=== PATIENT | female | born 1975 | race Caucasian/White ===

== ENCOUNTER → 2016-10-30 | Outpatient (CLI) | payer BC ==
[2016-10-30 10:43] VITALS: BP 144/84; PULSE 104; RESP 14; TEMP 99.2; BMI 40.1
--- NOTE | 2016-12-03 01:12 | P.PN ---
Progress Note - Text DATE OF CONSULTATION: 10/30/2016. CHIEF COMPLAINT: Bariatric assessment. HISTORY OF PRESENT ILLNESS: Alice Martinez is a 41-year-old female who comes in evaluating for bariatric procedure particular gastric bypass. She reports having history of high liver enzymes including having a previous ultrasound of her liver which have been unremarkable. She does have family and friends who have had bariatric procedures as well. She denies any previous upper endoscopy before. No reports of stomach or esophageal cancer in herself or family. She denies any lupus in her family or ulcerative colitis or Crohn's disease. She denies any food allergies or diarrhea. She does report severe lower back pain including pain along the bilateral hips, knees and ankles. She takes Motrin. She also has troubles with her bladder for which she has had surgical procedure. At her height of 5 feet 5 inches, her ideal body weight is 149 pounds. Her original weight is 250 pounds. She has been able to lose weight down to 241 pounds. She is 92 pounds overweight. Body mass index is reduced from 41.7 down to 40.1. Her goal weight is to get down to 130 to 135 pounds. She reports her weight has gotten worse after working at midnight. She has a history of sleep apnea and snoring. As a result she also developed hypertension. She is looking to have surgery fairly soon. Again, she is evaluating for gastric bypass. PAST MEDICAL HISTORY: 1. Hypertension. 2. Sleep apnea. 3. Depression. 4. Gastroesophageal reflux disease. 5. Hyperlipidemia. 6. Generalized fatigue. 7. Urinary incontinence. 8. Panniculitis. 9. Anxiety. 10. Depression. 11. Panic disorder. PAST SURGICAL HISTORY: 1. . 2. Endometrial procedure. 3. Bladder sling. 4. Tubal ligation. 5. Uterine ablation. MEDICATIONS: 1. Hygroton. 2. Maxalt. 3. Effexor. 4. Neurontin. 5. Restoril. 6. Omeprazole. ALLERGIES: Denies. SOCIAL HISTORY: Reports alcohol use. Former tobacco use. FAMILY HISTORY: Pertinent for morbid obesity. Also has diabetes in her family as well as bipolar disorder, migraines and uterine cancer. REVIEW OF SYSTEMS: CONSTITUTIONAL: Highest weight of 250 pounds for her 5 feet 5 inches frame. Her ideal body weight of 149 pounds. She is 92 pounds overweight. Present weight 241 pounds. Body mass index 40.1. Body mass index reduced from 41.7 down to 40.1. HEENT: Denies any troubles with dysphagia. No reports with troubles with vision, hearing or nosebleeds. ENDOCRINE: No reports of known thyroid disorders or blood sugar glucose intolerance. GASTROINTESTINAL: Reports gastroesophageal reflux disease. Denies any diarrhea. RESPIRATORY: Has obstructive sleep apnea. No recent pneumonia. MUSCULOSKELETAL: Has diffuse osteoarthritis including of the lower back and hips and knees. PSYCH: History of depression, including bipolar disorder. NEURO: No history of stroke or seizure disorder. HEMATOLOGIC: No reports of easy bruising or bleeding. PHYSICAL EXAM: VITAL SIGNS: 98.2, 104, 14, 144/84. GENERAL: Well-developed, pleasant female in no acute distress. HEENT: No sclerae icterus. Extraocular movements grossly intact. Moist buccal mucosa. NECK: Supple without lymphadenopathy. CHEST: Nonlabored respirations. Equal bilateral excursions. CARDIOVASCULAR: Regular rate and rhythm. 2+ bilateral pitting edema. ABDOMEN: Soft, nontender, nondistended. MUSCULOSKELETAL: No clubbing, cyanosis, or edema. PSYCH: Appropriate affect. Alert and oriented to person, place, and time. NEURO: No focal or lateralizing signs. Cranial nerves II through XII grossly within normal limits. LABS: Pending. ASSESSMENT: 1. Morbid obesity due to excess calories. 2. Body mass index reduced from 41.7 down to 40.1. 3. Tachycardia. 4. Obstructive sleep apnea. 5. Osteoarthritis of bilateral hips. 6. Osteoarthritis of lower back. 7. Osteoarthritis of bilateral knees. 8. Family history of morbid obesity. 9. Family history of diabetes type 2. 10. Hypertensive heart disease. 11. History of elevated liver enzymes. 12. Gastroesophageal reflux disease. 13. Dietary surveillance and counseling. PLAN: 1. Recommend upper endoscopy especially since she reports gastroesophageal reflux disease and is looking into a gastrectomy-type procedure. 2. [place] bariatric surgery collaborative outcomes calculator was reviewed in detail, including benefits and risks of all procedures including band, sleeve and Josue-en-Y gastric bypass. Her questions were answered. 3. Will need dietary surveillance and counseling. 4. Psych assessment per insurance guidelines. 5. Medical risk assessment per insurance guidelines. 6. Recommend 12-lead EKG as she has tachycardia and hypertension. 7. Recommend follow up after her upper endoscopy and bariatric metabolic panel.
== END | disposition home or self-care (01) ==
LOC: BARWHC3 09:51
PROVIDERS: ATTEND Surgery Plastic and Reconstructive Surgery
DX: Z01.818 Encounter for other preprocedural examination (principal); E66.01 Morbid (severe) obesity due to excess calories; I11.9 Hypertensive heart disease without heart failure; G47.30 Sleep apnea, unspecified; D50.8 Other iron deficiency anemias
CPT/HCPCS: 99201

== ENCOUNTER 2016-11-28 07:07 | Day surgery (SDC) | payer BC ==
[2016-11-24 15:36] VITALS: BMI 40.1
--- NOTE | 2016-11-28 01:13 | P.GSHP ---
History of Present Illness H&P Date: 11/28/16 CHIEF COMPLAINT: GERD HISTORY OF PRESENT ILLNESS: The patient is a 41-year-old female who presents reports gastroesophageal reflux disease. Upper endoscopy was offered for further evaluation and management. PAST MEDICAL HISTORY: Please see list. PAST SURGICAL HISTORY: Please see list. MEDICATIONS: Please see list. ALLERGIES: Please see list. SOCIAL HISTORY: No illicit drug use FAMILY HISTORY: No reports of Crohn disease or ulcerative colitis. REVIEW OF ORGAN SYSTEMS: CONSTITUTIONAL: No reports of fevers or chills. GI: Denies any blood in stools or constipation. PHYSICAL EXAM: VITAL SIGNS: Stable GENERAL: Well-developed and pleasant in no acute distress. HEENT: No scleral icterus. Extraocular movements grossly intact. Moist buccal mucosa. NECK: Supple without lymphadenopathy. CHEST: Unlabored respirations. Equal bilateral excursions. CARDIOVASCULAR: Regular rate and rhythm. Distal 2+ pulses. ABDOMEN: Soft, nondistended. MUSCULOSKELETAL: No clubbing, cyanosis, or edema. ASSESSMENT: 1. Gastroesophageal reflux disease PLAN: 1. Recommend proceeding with an upper endoscopy Past Medical History Past Medical History: GERD/Reflux, Hyperlipidemia, Hypertension, Sleep Apnea/ CPAP/BIPAP Additional Past Medical History / Comment(s): MIGRAINE HEADACHE History of Any Multi-Drug Resistant Organisms: None Reported Past Surgical History: Section Additional Past Surgical History / Comment(s): 2001, laparscopic endometrial procedure, bladder sling 2012, tubal sterilaztio,, uterine ablation. Past Anesthesia/Blood Transfusion Reactions: No Reported Reaction Additional Past Anesthesia/Blood Transfusion Reaction / Comment(s): no hx of transfusion as of 10/30/16 Past Psychological History: Anxiety, Depression, Panic Disorder Smoking Status: Former smoker Past Alcohol Use History: Rare Additional Past Alcohol Use History / Comment(s): STARTED SMOKING AT AGE 19 QUIT 04/2016 SMOKED LESS THAN 1/2 PPD Past Drug Use History: None Reported - Past Family History Mother Family Medical History: Cancer, Diabetes Mellitus Additional Family Medical History / Comment(s): uterine cancer Medications and Allergies Home Medications Medication Instructions Recorded Confirmed Type Chlorthalidone [Hygroton] 50 mg PO DAILY 10/30/16 11/24/16 History Gabapentin [Neurontin] 600 mg PO HS 10/30/16 11/24/16 History Rizatriptan Odt [[employer]] 10 mg PO Q2H PRN 10/30/16 11/24/16 History Venlafaxine HCl [Effexor] 75 mg PO BID 10/30/16 11/24/16 History Temazepam [Restoril] 15 mg PO HS PRN 11/24/16 11/24/16 History Allergies Allergy/AdvReac Type Severity Reaction Status Date / Time No Known Allergies Allergy Verified 11/24/16 15:12
[~2016-11-28 07:07] MED LIST: LACTATED RINGERS 1,000 ML IV SCH; LIDOCAINE 1% 20 ML VIAL (10MG/ML) FOR IV START INTRADERMA PRN
[2016-11-28 07:29] VITALS: TEMP 98.7
[2016-11-28] MEDS ORDERED: PROPOFOL 10 MG/ML 20 ML VIAL IV ONE (07:54)
[2016-11-28] MEDS ORDERED: LIDOCAINE 1% INJ 10MG/ML (20 ML MDV) ONE (07:54)
[2016-11-28] MEDS ORDERED: GLYCOPYRROLATE 0.2 MG/ML 2 ML VIAL ONE (07:54)
--- NOTE | 2016-11-28 08:04 | P.PCN ---
Date of Procedure: 11/28/16 Description of Procedure: PREOPERATIVE DIAGNOSIS: Gastroesophageal reflux disease. Regurgitation. POSTOPERATIVE DIAGNOSIS: Gastroesophageal reflux disease. Regurgitation. Gastric ulcer along antrum, superficial, without bleeding and acute. OPERATION: Esophagogastroduodenoscopy with biopsies along antrum. SURGEON: Margo Frye MD ANESTHESIA: MAC. INDICATIONS: The patient is a 41-year-old female who presents with a history of reflux disease. Benefits and risks of the procedure were described. Informed consent was obtained. DESCRIPTION: The patient was brought into the endoscopy suite and laid in the left lateral decubitus position. An Olympus gastroscope was passed along the posterior oropharynx down to the distal esophagus where the squamocolumnar junction was encountered at 38 cm from the incisors. The stomach was entered and minimal bile reflux was found. Additional findings are listed below. Biopsies with cold forceps were obtained of the antrum. The first through third portion of the duodenum was examined and unremarkable. Retroflexion of the scope confirmed Hill grade II lower esophageal valve. The squamocolumnar junction demostrated acute LA grade A erosive esophagitis. The stomach was desufflated. The patient tolerated the procedure well. FINDINGS: Squamocolumnar junction 38 cm from the incisors. Hill grade II lower esophageal valve. No large diaphragmatic hiatal hernia LA grade C erosive esophagitis. No active duodenitis. Superficial acute gastric ulcers. RECOMMENDATIONS: Further recommendations pending results of pathology report. Upper endoscopy as needed.
[2016-11-28 08:45] VITALS: BP 119/70; PULSE 94; RESP 18
== END 2016-11-28 08:54 | disposition home or self-care (01) ==
LOC: ORWHC2ENDO 07:07
PROVIDERS: ATTEND Surgery Plastic and Reconstructive Surgery
DX: K29.50 Unspecified chronic gastritis without bleeding (principal); K21.9 Gastro-esophageal reflux disease without esophagitis; I10 Essential (primary) hypertension; E78.5 Hyperlipidemia, unspecified; F32.9 Major depressive disorder, single episode, unspecified; F41.9 Anxiety disorder, unspecified; G47.30 Sleep apnea, unspecified; Z87.891 Personal history of nicotine dependence; Z79.899 Other long term (current) drug therapy
CPT/HCPCS: 88305; 88342; 43239; J2001; J2704

== ENCOUNTER → 2016-12-04 | Outpatient (CLI) | payer BC ==
[2016-12-04 09:19] VITALS: BP 129/78; PULSE 97; RESP 14; TEMP 98.8; BMI 40.1
--- NOTE | 2017-01-05 21:55 | P.PN ---
Progress Note - Text DATE OF SERVICE: 12/04/2016 CHIEF COMPLAINT: Bariatric assessment. HISTORY OF PRESENT ILLNESS: Alice Martinez is a 41-year-old female who initially presented to the [facility] on 10/30/2016. At that time, she had weighed 250 pounds. Her ideal body weight for her 5 foot 5 frame is 149 pounds. Today she comes in weighing 240 pounds. She lost 10 pounds in one month. Percent excess weight loss is now 10%. Body mass index is reduced from 41.7 down to 40.1. She is still 91 pounds overweight. She is following up with Bariatric Dietitian as well. PAST MEDICAL HISTORY: 1. Hypertension. 2. Sleep apnea. 3. Depression. 4. Gastroesophageal reflux disease. 5. Hyperlipidemia. 6. Generalized fatigue. 7. Urinary incontinence. 8. Panniculitis. 9. Anxiety. 10. Depression. 11. Panic disorder. PAST SURGICAL HISTORY: 1. . 2. Endometrial procedure. 3. Bladder sling. 4. Tubal ligation. 5. Uterine ablation. 6. Upper endoscopy. MEDICATIONS: 1. Effexor. 2. Restoril. 3. Maxalt. 4. Omeprazole. 5. Neurontin. 6. Hygroton. ALLERGIES: Denies. SOCIAL HISTORY: Reports alcohol use. Former tobacco use. FAMILY HISTORY: Pertinent for morbid obesity. Also has diabetes in her family as well as bipolar disorder, migraines and uterine cancer. REVIEW OF SYSTEMS: CONSTITUTIONAL: Weight loss of 10 pounds in one month. Initial weight of 250 pounds. [place] body weight of 149 pounds. Her body mass index is reduced from 41.7 down to 40.1. HEENT: Denies any troubles with dysphagia. No reports with troubles with vision, hearing or nosebleeds. ENDOCRINE: No reports of known thyroid disorders or blood sugar glucose intolerance. GASTROINTESTINAL: Reports gastroesophageal reflux disease. Denies any diarrhea. RESPIRATORY: Has obstructive sleep apnea. No recent pneumonia. MUSCULOSKELETAL: Has diffuse osteoarthritis including of the lower back and hips and knees. PSYCH: History of depression, including bipolar disorder. NEURO: No history of stroke or seizure disorder. HEMATOLOGIC: No reports of easy bruising or bleeding. PHYSICAL EXAM: VITAL SIGNS: 98.8, 97, 14, 110/78, 5 foot 5, 240 pounds. Body mass index of 40.1. ABDOMEN: Soft, nontender, nondistended. GENERAL: Well-developed, pleasant female in no acute distress. HEENT: No sclerae icterus. Extraocular movements grossly intact. Moist buccal mucosa. NECK: Supple without lymphadenopathy. CHEST: Nonlabored respirations. Equal bilateral excursions. CARDIOVASCULAR: Regular rate and rhythm. 2+ bilateral pitting edema. MUSCULOSKELETAL: No clubbing, cyanosis, or edema. PSYCH: Appropriate affect. Alert and oriented to person, place, and time. NEURO: No focal or lateralizing signs. Cranial nerves II through XII grossly within normal limits. STUDIES: Upper endoscopy demonstrated gastric ulcer including reflux disease. Hill grade 2 lower esophageal valve identified. Erosive esophagitis also identified. As a result she was placed on omeprazole. Pathology report reviewed, consistent with chronic gastritis. No evidence of H. pylori bacteria identified. LABS: Bariatric metabolic panel reviewed with hemoglobin normal at 15.1. Calcium is moderately elevated at 11. Phosphorus elevated at 4.9. Ferritin elevated at 219. AST elevated at 147. ALT elevated at 237. Triglycerides elevated at 252. Cholesterol elevated at 261. LDL elevated at 161. Vitamin B12 supratherapeutic of over 1000. Parathyroid hormone was actually suppressed at 12.2. Selenium is elevated at 187. ASSESSMENT: 1. Morbid obesity due to excess calories. 2. Body mass index reduced from 41.7 down to 40.1. 3. Tachycardia. 4. Obstructive sleep apnea. 5. Osteoarthritis of bilateral hips. 6. Osteoarthritis of lower back. 7. Osteoarthritis of bilateral knees. 8. Family history of morbid obesity. 9. Family history of diabetes type 2. 10. Hypertensive heart disease. 11. History of elevated liver enzymes. 12. Gastroesophageal reflux disease. 13. Dietary surveillance and counseling. 14. Chronic gastritis. 15. Superficial gastric ulcers. 16. Elevated AST. 17. Elevated ALT. 18. Hypertriglyceridemia. 19. Hypercholesterolemia. 20. Hypocalcemia. 21. Hyperphosphatemia. 22. Erosive esophagitis. 23. Selenium excess. 24. Metabolic syndrome. PLAN: 1. She has multiple abnormalities including elevated triglycerides, including cholesterol level early features consistent with metabolic syndrome. 2. She had gastric ulcer for which she is responding well to omeprazole. 3. Recommend dietitian classes. 4. She has elevated selenium for which additional selenium sources is advised to be avoided. 5. She has elevated liver enzymes whereby a liver ultrasound may be of benefit. She still has her gallbladder for which gallbladder disease cannot be excluded. 6. An 8 page bariatric consent form was reviewed in detail; however, not limited to bleeding, infection, leaks, multiple vitamin deficiencies, and bowel obstruction. Strictures are also described. 7. As an 8 page second generation consent form was reviewed in detail, her questions were addressed. 8. Recommend dietitian classes. 9. As for surgical procedures, she will determine whether she is seeking a sleeve or Josue-en-Y gastric bypass. She has declined adjustable gastric band.
== END | disposition home or self-care (01) ==
LOC: BARWHC3 08:59
PROVIDERS: ATTEND Surgery Plastic and Reconstructive Surgery
DX: Z01.818 Encounter for other preprocedural examination (principal); E66.01 Morbid (severe) obesity due to excess calories; Z68.41 Body mass index [BMI] 40.0-44.9, adult; K29.50 Unspecified chronic gastritis without bleeding; K25.9 Gastric ulcer, unspecified as acute or chronic, without hemorrhage or perforation; R74.8 Abnormal levels of other serum enzymes; R79.89 Other specified abnormal findings of blood chemistry; E78.1 Pure hyperglyceridemia; E78.00 Pure hypercholesterolemia, unspecified; E83.51 Hypocalcemia; E83.39 Other disorders of phosphorus metabolism; K22.10 Ulcer of esophagus without bleeding; Z79.899 Other long term (current) drug therapy; I10 Essential (primary) hypertension
CPT/HCPCS: 99211

== ENCOUNTER → 2016-12-08 | Outpatient (CLI) | payer BC ==
[2016-12-08 12:07] LABS: CH 30.1; CHCM 32.4; HCT 46.5 % (34.0-46.0); HDW 2.28; HGB 15.1 gm/dL (11.4-16.0); MCH 30.3 pg (25.0-35.0); MCHC 32.4 g/dL (31.0-37.0); MCV 93.5 fL (80.0-100.0); Mean Platelet Volume 6.2; RBC 4.98 m/uL (3.80-5.40); RDW 13.7 % (11.5-15.5); WBC 9.9 k/uL (3.8-10.6)
[2016-12-08 12:13] VITALS: BMI 40.4
[2016-12-08 12:16] LABS: Partial Thromboplastin Time 25.8 sec (22.0-30.0); Prothrombin Time 10.2 sec (9.0-12.0)
[2016-12-08 12:31] LABS: ALT 234 U/L (9-52); AST 147 U/L (14-36); Alkaline Phosphatase 64 U/L (38-126); Anion Gap 11 mmol/L; Blood Urea Nitrogen 14 mg/dL (7-17); Carbon Dioxide 29 mmol/L (22-30); Chloride 102 mmol/L (98-107); Cholesterol 261 mg/dL (<200); Glucose 82 mg/dL (74-99); HDL Cholesterol 50 mg/dL (40-60); Iron 109 ug/dL (37-170); Non-African American GFR(MDRD) >60 (>60 ml/min/1.73 sqM); Phosphorous 4.9 mg/dL (2.5-4.5); Potassium 4.4 mmol/L (3.5-5.1); Sodium 142 mmol/L (137-145); Total Bilirubin 0.6 mg/dL (0.2-1.3); Total Protein 7.9 g/dL (6.3-8.2); Triglycerides 252 mg/dL (<150)
[2016-12-08 12:45] LABS: % Iron Saturation 32.9 % (20-50); Prealbumin 30 mg/dL (18-36); Total Iron Binding Capacity 331 ug/dL (265-497)
[2016-12-08 13:38] LABS: Vitamin B12 >1000 pg/mL (239-931)
[2016-12-08 13:58] LABS: Hemoglobin A1C 5.9 % (4.2-6.1)
[2016-12-12 20:52] LABS: Selenium 187 mcg/L (63-160)
== END | disposition home or self-care (01) ==
LOC: BARWHC3 08:49
PROVIDERS: ATTEND Surgery Plastic and Reconstructive Surgery
DX: E66.01 Morbid (severe) obesity due to excess calories (principal); E89.1 Postprocedural hypoinsulinemia; D50.8 Other iron deficiency anemias; K90.9 Intestinal malabsorption, unspecified; E55.9 Vitamin D deficiency, unspecified; N19 Unspecified kidney failure; K76.9 Liver disease, unspecified; K50.90 Crohn's disease, unspecified, without complications
CPT/HCPCS: 80053; 80061; 82306; 82525; 82607; 82728; 82746; 83036; 83540; 83550; 83735; 83970; 84100; 84134; 84255; 84425; 84443; 84590; 84630; 85027; 85610; 85730; 97804

== ENCOUNTER → 2016-12-16 | Outpatient (CLI) | payer BC ==
[2016-12-16 11:27] LABS: EKG EKG PERFORMED
[2016-12-16 11:47] LABS: ALT 232 U/L (9-52); AST 153 U/L (14-36); Alkaline Phosphatase 61 U/L (38-126); Anion Gap 9 mmol/L; Blood Urea Nitrogen 12 mg/dL (7-17); Calcium 10.2 mg/dL (8.4-10.2); Carbon Dioxide 24 mmol/L (22-30); Chloride 108 mmol/L (98-107); Glucose 97 mg/dL (74-99); Non-African American GFR(MDRD) >60 (>60 ml/min/1.73 sqM); Potassium 4.5 mmol/L (3.5-5.1); Sodium 141 mmol/L (137-145); Total Bilirubin 0.7 mg/dL (0.2-1.3); Total Protein 7.5 g/dL (6.3-8.2)
== END | disposition home or self-care (01) ==
LOC: LABPAT 11:08
PROVIDERS: ATTEND Surgery Plastic and Reconstructive Surgery
DX: Z01.812 Encounter for preprocedural laboratory examination (principal)
CPT/HCPCS: 80053; 93005

== ENCOUNTER → 2016-12-16 | Outpatient (CLI) | payer BC ==
--- NOTE | 2016-12-16 11:13 | US ---
EXAMINATION TYPE: US gallbladder DATE OF EXAM: 12/16/2016 11:04 AM COMPARISON: NONE CLINICAL HISTORY: K76.9 Liver disease, unspecified. EXAM MEASUREMENTS: Liver Length: 15.0 cm Gallbladder Wall: 0.2 cm CBD: 0.4 cm Right Kidney: 12.4 x 3.9 x 4.7 cm Pancreas: visualized portions wnl Liver: difficult to penetrate, echogenic as compared to kidney Gallbladder: No stones seen Evidence for sonographic Mojica's sign: No CBD: wnl Right Kidney: No hydronephrosis or masses seen IMPRESSION: 1. Fatty hepatic infiltration.
== END | disposition home or self-care (01) ==
LOC: RADUSWWP 10:50
PROVIDERS: ATTEND Surgery Plastic and Reconstructive Surgery
DX: K76.0 Fatty (change of) liver, not elsewhere classified (principal)
CPT/HCPCS: 76705

== ENCOUNTER 2016-12-19 06:26 | Inpatient (IN) | payer BC ==
[2016-12-17 10:54] VITALS: BMI 39.9
--- NOTE | 2016-12-19 00:26 | P.GSHP ---
History of Present Illness H&P Date: 12/19/16 DATE OF SERVICE: 12/19/2016. CHIEF COMPLAINT: Bariatric assessment. HISTORY OF PRESENT ILLNESS: Alice Martinez is a 41-year-old female who comes in evaluating for gastric bypass. She reports having history of high liver enzymes including having a previous ultrasound of her liver which have been unremarkable. She does have family and friends who have had bariatric procedures as well. No reports of stomach or esophageal cancer in herself or family. She denies any lupus in her family or ulcerative colitis or Crohn's disease. She denies any food allergies or diarrhea. She does report severe lower back pain including pain along the bilateral hips, knees and ankles. She takes Motrin. She also has troubles with her bladder for which she has had surgical procedure. At her height of 5 feet 5 inches, her ideal body weight is 149 pounds. Her original weight is 250 pounds. She has been able to lose weight down to 241 pounds. She is 92 pounds overweight. Body mass index is reduced from 41.7 down to 40.1. Her goal weight is to get down to 130 to 135 pounds. She reports her weight has gotten worse after working at midnight. She has a history of sleep apnea and snoring. As a result she also developed hypertension. Again, she is evaluating for gastric bypass. PAST MEDICAL HISTORY: 1. Hypertension. 2. Sleep apnea. 3. Depression. 4. Gastroesophageal reflux disease. 5. Hyperlipidemia. 6. Generalized fatigue. 7. Urinary incontinence. 8. Panniculitis. 9. Anxiety. 10. Depression. 11. Panic disorder. PAST SURGICAL HISTORY: 1. . 2. Endometrial procedure. 3. Bladder sling. 4. Tubal ligation. 5. Uterine ablation. MEDICATIONS: 1. Hygroton. 2. Maxalt. 3. Effexor. 4. Neurontin. 5. Restoril. 6. Omeprazole. ALLERGIES: Denies. SOCIAL HISTORY: Reports alcohol use. Former tobacco use. FAMILY HISTORY: Pertinent for morbid obesity. Also has diabetes in her family as well as bipolar disorder, migraines and uterine cancer. REVIEW OF SYSTEMS: CONSTITUTIONAL: Highest weight of 250 pounds for her 5 feet 5 inches frame. Her ideal body weight of 149 pounds. She is 92 pounds overweight. Present weight 241 pounds. Body mass index 40.1. Body mass index reduced from 41.7 down to 40.1. HEENT: Denies any troubles with dysphagia. No reports with troubles with vision, hearing or nosebleeds. ENDOCRINE: No reports of known thyroid disorders or blood sugar glucose intolerance. GASTROINTESTINAL: Reports gastroesophageal reflux disease. Denies any diarrhea. RESPIRATORY: Has obstructive sleep apnea. No recent pneumonia. MUSCULOSKELETAL: Has diffuse osteoarthritis including of the lower back and hips and knees. PSYCH: History of depression, including bipolar disorder. NEURO: No history of stroke or seizure disorder. HEMATOLOGIC: No reports of easy bruising or bleeding. PHYSICAL EXAM: VITAL SIGNS: 98.2, 104, 14, 144/84. GENERAL: Well-developed, pleasant female in no acute distress. HEENT: No sclerae icterus. Extraocular movements grossly intact. Moist buccal mucosa. NECK: Supple without lymphadenopathy. CHEST: Nonlabored respirations. Equal bilateral excursions. CARDIOVASCULAR: Regular rate and rhythm. 2+ bilateral pitting edema. ABDOMEN: Soft, nontender, nondistended. MUSCULOSKELETAL: No clubbing, cyanosis, or edema. PSYCH: Appropriate affect. Alert and oriented to person, place, and time. NEURO: No focal or lateralizing signs. Cranial nerves II through XII grossly within normal limits. ASSESSMENT: 1. Morbid obesity due to excess calories. 2. Body mass index 40.1. 3. Chronic gastritis. 4. Superficial gastric ulcers. 5. Elevated AST. 6. Elevated ALT. 7. Hypertriglyceridemia. 8. Hypercholesterolemia. 9. Hypocalcemia. 10. Hyperphosphatemia. 11. Erosive esophagitis. 12. Hypertension. PLAN: 1. She has multiple elevated triglycerides, including cholesterol level early features consistent with metabolic syndrome. 2. She had gastric ulcer for which she is responding well to omeprazole. 3. Recommend dietitian classes. 4. She has elevated selenium for which additional selenium sources is advised to be avoided. 5. She has elevated liver enzymes whereby a liver ultrasound may be of benefit. She still has her gallbladder for which gallbladder disease cannot be excluded. 6. An 8 page bariatric consent form was reviewed in detail; however, not limited to bleeding, infection, leaks, multiple vitamin deficiencies, and bowel obstruction. Strictures are also described. 7. DVT prophylaxis. 8. Antibiotic prophylaxis. 9. Inpatient hospitalization advised over 2 nights. Past Medical History Past Medical History: GERD/Reflux, Hyperlipidemia, Hypertension, Sleep Apnea/ CPAP/BIPAP Additional Past Medical History / Comment(s): MIGRAINE HEADACHE, Peptic ulcer dx November 2016, supposed to use CPAP History of Any Multi-Drug Resistant Organisms: None Reported Past Surgical History: Section, Tubal Ligation, Uterine Ablation Additional Past Surgical History / Comment(s): laparoscopic endometrial procedure, bladder sling 2012, EGD Past Anesthesia/Blood Transfusion Reactions: No Reported Reaction Additional Past Anesthesia/Blood Transfusion Reaction / Comment(s): no hx of transfusion as of 10/30/16 Past Psychological History: Anxiety, Depression, Panic Disorder Smoking Status: Former smoker Past Alcohol Use History: Rare Additional Past Alcohol Use History / Comment(s): STARTED SMOKING AT AGE 19 QUIT 04/2016 SMOKED LESS THAN 1/2 PPD Past Drug Use History: None Reported - Past Family History Mother Family Medical History: Cancer, Diabetes Mellitus Additional Family Medical History / Comment(s): uterine cancer Medications and Allergies Home Medications Medication Instructions Recorded Confirmed Type Chlorthalidone [Hygroton] 50 mg PO DAILY 10/30/16 12/17/16 History Gabapentin [Neurontin] 600 mg PO HS 10/30/16 12/17/16 History Rizatriptan Odt [[employer]] 10 mg PO Q2H PRN 10/30/16 12/17/16 History Venlafaxine HCl [Effexor] 75 mg PO BID 10/30/16 12/17/16 History Temazepam [Restoril] 15 - 30 mg PO HS PRN 11/24/16 12/17/16 History Allergies Allergy/AdvReac Type Severity Reaction Status Date / Time No Known Allergies Allergy Verified 12/17/16 09:57
[~2016-12-19 06:26] MED LIST changes: +ACETAMINOPHEN IV (For NPO) 1,000 MG in EMPTY BAG 1 BAG IVPB ONE; +CHLORHEXIDINE GLUCONATE 15 ML CUP MUCOUS MEM ONE; +DEXAMETHASONE SOD PHOSPHATE 10 MG/ML 1 ML VIAL IV ONE; +ENOXAPARIN 40 MG/0.4 ML SYRINGE SQ STA; -LACTATED RINGERS 1,000 ML IV SCH; +MIDAZOLAM 2 MG/2 ML VIAL IV PRN; +ONDANSETRON 4 MG/2 ML VIAL IVP ONE; +PANTOPRAZOLE 40 MG/10 ML VIAL IV STA; +SCOPOLAMINE 1.5MG/72HR PATCH TRANSDERM ONE; +ceFAZolin 2 GM in SODIUM CHLORIDE 0.9% 100 ML IVPB ONE
[2016-12-19] MEDS: LACTATED RINGERS 1,000 ML IV SCH (06:57)
[2016-12-19] MEDS ORDERED: MIDAZOLAM 2 MG/2 ML VIAL ONE (07:30)
[2016-12-19] MEDS ORDERED: NEOSTIGMINE 1 MG/ML 10 ML VIAL ONE (07:30)
[2016-12-19] MEDS ORDERED: ROCURONIUM BROMIDE 10 MG/ML 10 ML VIAL IV ONE (07:30)
[2016-12-19] MEDS ORDERED: PHENYLEPHRINE-0.9% NACL SYG 1 MG/10 ML SYRINGE ONE (07:30)
[2016-12-19] MEDS ORDERED: HYDROmorphone (PF) 1 MG/ML ONE (07:30)
[2016-12-19] MEDS ORDERED: SUCCINYLCHOLINE CHLORIDE 100 MG/5 ML SYR IV ONE (07:30)
[2016-12-19] MEDS ORDERED: LIDOCAINE 1% INJ 10MG/ML (20 ML MDV) ONE (07:30)
[2016-12-19] MEDS ORDERED: GLYCOPYRROLATE 0.2 MG/ML 2 ML VIAL ONE (07:30)
[2016-12-19] MEDS ORDERED: fentaNYL (PF) 50 MCG/ML 2 ML AMP ONE (07:30)
[2016-12-19] MEDS ORDERED: ePHEDrine 50 MG/ML 1 ML AMP ONE (07:30)
[2016-12-19] MEDS ORDERED: PROPOFOL 10 MG/ML 20 ML VIAL IV ONE (07:30)
[2016-12-19] MEDS ORDERED: SODIUM CHLORIDE 0.9% 50 ML with ceFAZolin 2,000 MG IV ONE ×2 (07:30)
[2016-12-19] MEDS ORDERED: BUPIVACAIN-EPI 0.25%-1:200,000 30 ML VIAL SQ ONE ×2 (07:59)
[2016-12-19] MEDS ORDERED: LACTATED RINGERS 1,000 ML IV ONE ×2 (10:26)
[2016-12-19] MEDS ORDERED: NALOXONE 0.4 MG/ML 1 ML VIAL IV PRN (10:39)
[2016-12-19] MEDS ORDERED: ONDANSETRON 4 MG/2 ML VIAL IVP PRN (10:39)
[2016-12-19] MEDS ORDERED: diphenhydrAMINE 50 MG/ML 1 ML VIAL IVP PRN (10:39)
--- NOTE | 2016-12-19 10:39 | P.PCN ---
Date of Procedure: 12/19/16 Preoperative Diagnosis: Morbid obesity, BMI 39.9, elevated liver enzymes, hypertension, sleep apnea, metabolic syndrome Postoperative Diagnosis: Same, severe fatty liver disease with early cirrhosis, hepatomegaly Procedure(s) Performed: Laparoscopic Josue-en-Y gastric bypass 100 cm, antecolic, antigastric, intraoperative EGD today, attempted percutaneous liver biopsy, reduction of incarcerated incisional hernia Pfannenstiel 3 cm Anesthesia: GETA, local Surgeon: Margo Frye Estimated Blood Loss (ml): 20 Pathology: none sent Condition: stable Disposition: floor Operative Findings: Severe fatty liver disease with hepatocellular findings consistent with early cirrhosis, attempted liver biopsy performed with percutaneous [place] needle, 100 cm Josue limb, 25 mm Orvil, negative leak test, no reinforcement sutures needed, 24 cm thoracic length, 3 - 60 purple, 1 - 60 angle oliva, 2 - 45 mm oliva, 12 mm port at RLQ, 5 - mm at LLQ, incarcerated hernia previous pfannenstiel of 3 cm reduced
[2016-12-19] MEDS: HYDROmorphone 1 MG/ML 1 ML SYRINGE IVP PRN ×3 (11:30→13:13)
[2016-12-19] MEDS ORDERED: ACETAMINOPHEN IV (For NPO) 1,000 MG in EMPTY BAG 1 BAG IVPB ONE (13:00)
[2016-12-19] MEDS: 0.9% NACL WITH KCL 20 MEQ/L 1,000 ML IV SCH ×2 (13:06→23:22)
[2016-12-19] MEDS: HYOSCYAMINE ORAL DROPS 1.875 MG/15 ML BOTTLE PO SCH ×3 (13:07→23:21)
[2016-12-19] MEDS: SIMETHICONE 40 MG/0.6 ML DROPS 2,000 MG/30 ML BOTTLE PO SCH ×3 (13:08→23:21)
[2016-12-19] MEDS: ALBUTEROL NEBULIZED 2.5 MG/3 ML INHALATION SCH ×2 (15:51→19:39)
--- NOTE | 2016-12-19 16:17 | P.PN ---
Subjective Principal diagnosis: Morbid obesity The patient is a 41-year-old female status post laparoscopic Josue-en-Y gastric bypass. Findings including liver disease and liver cirrhosis were also reviewed with her. Also she had an incarcerated incisional hernia from her previous which is present for over 15+ years. Her pain is fair. Her nausea is improved. Objective - Vital Signs Vital signs: Vital Signs Temp 98.5 F 12/19/16 15:06 Pulse 71 12/19/16 15:06 Resp 16 12/19/16 15:21 BP 132/89 12/19/16 15:06 Pulse Ox 99 12/19/16 15:06 Intake & Output 12/18/16 12/19/16 12/19/16 18:59 06:59 18:59 Intake Total 300 1450 Output Total 125 Balance 300 1325 Weight 108.862 kg Intake: IV 300 1450 Output: Urine 105 Estimated Blood Loss 20 Other: Voiding Method Toilet # Voids 300 - Exam GENERAL: Well developed and in no acute distress. Pleasant. HEENT: No sclera icterus. Extraocular movements grossly intact. Moist buccal mucosa. Head is atraumatic, normocephalic. Hears conversational speech. No nasal drainage. NECK: Supple without lymphadenopathy. No JV distention. CHEST: Non-labored respirations and equal bilateral excursions. CARDIOVASCULAR: Regular rate and rhythm. Palpable 2+ radial pulses. ABDOMEN: Soft. Mild distention. Laparoscopic sites clean dry and intact. No signs of infection. MUSCULOSKELETAL: No clubbing, cyanosis or edema. NEUROLOGIC: No focal or lateralizing signs. PSYCH: Appropriate affect. Alert and oriented to person, place and time. Assessment and Plan (1) Morbid obesity with BMI of 40.0-44.9, adult Status: Acute (2) S/P bariatric surgery Status: Acute (3) Liver cirrhosis secondary to WHITAKER Status: Acute (4) Hepatomegaly Status: Acute (5) Hypertension Status: Acute (6) Sleep apnea Status: Acute Plan: 1. She is doing extremely well and is tolerating liquid diet. 2. Recommend low carbohydrate diet to address severity of fatty liver disease. 3. She has anticipated follow-up within 48-72 hours.
[2016-12-19] MEDS ORDERED: MAGNESIUM SULFATE-D5W PMX 1 GM in DEXTROSE/WATER 1 100ML.BAG IVPB ONE ×2 (17:00→17:30)
[2016-12-19] MEDS: HYDROcodone/APAP 15 ML SOLUTION PO PRN ×2 (17:06→23:20)
[2016-12-20] MEDS: HYDROcodone/APAP 15 ML SOLUTION PO PRN ×3 (04:35→16:07)
[2016-12-20] MEDS: SIMETHICONE 40 MG/0.6 ML DROPS 2,000 MG/30 ML BOTTLE PO SCH ×4 (04:36→23:03)
[2016-12-20] MEDS: HYOSCYAMINE ORAL DROPS 1.875 MG/15 ML BOTTLE PO SCH ×4 (04:36→23:03)
[2016-12-20] MEDS: 0.9% NACL WITH KCL 20 MEQ/L 1,000 ML IV SCH ×3 (04:39→21:13)
[2016-12-20] MEDS: LACTATED RINGERS 1,000 ML IV SCH (05:38)
[2016-12-20 07:20] LABS: Basophils % (A) 0 %; CH 30.4; CHCM 33.1; Eosinophils % (A) 0 %; HCT 37.5 % (34.0-46.0); HDW 2.33; HGB 12.3 gm/dL (11.4-16.0); Luc # (Auto) 0.23; Luc % (Auto) 2; Lymphocytes # (A) 1.5 k/uL (1.0-4.8); Lymphocytes % (A) 12 %; MCH 30.2 pg (25.0-35.0); MCHC 32.7 g/dL (31.0-37.0); MCV 92.3 fL (80.0-100.0); Mean Platelet Volume 6.5; Monocytes # (A) 0.6 k/uL (0-1.0); Monocytes % (A) 5 %; Neutrophils # (A) 9.8 k/uL (1.3-7.7); Neutrophils % (A) 81 %; RBC 4.06 m/uL (3.80-5.40); RDW 13.6 % (11.5-15.5); WBC 12.1 k/uL (3.8-10.6); WBC (Perox) 12.77
[2016-12-20 07:41] LABS: Anion Gap 7 mmol/L; Blood Urea Nitrogen 10 mg/dL (7-17); Calcium 8.7 mg/dL (8.4-10.2); Carbon Dioxide 23 mmol/L (22-30); Chloride 108 mmol/L (98-107); Magnesium 2.2 mg/dL (1.6-2.3); Non-African American GFR(MDRD) >60 (>60 ml/min/1.73 sqM); Phosphorous 2.8 mg/dL (2.5-4.5); Potassium 4.4 mmol/L (3.5-5.1); Sodium 138 mmol/L (137-145)
[2016-12-20] MEDS: ALBUTEROL NEBULIZED 2.5 MG/3 ML INHALATION SCH ×4 (08:07→20:34)
[2016-12-20] MEDS: PANTOPRAZOLE 40 MG/10 ML VIAL IV SCH (09:04)
[2016-12-20] MEDS: ENOXAPARIN 40 MG/0.4 ML SYRINGE SQ SCH ×2 (09:04→21:56)
[2016-12-20] MEDS ORDERED: ceFAZolin 2 GM in SODIUM CHLORIDE 0.9% 100 ML IVPB STA (09:28)
[2016-12-20] MEDS ORDERED: METOCLOPRAMIDE 5 MG/ML 2 ML VIAL IVP STA (10:59)
[2016-12-20] MEDS ORDERED: BISACODYL 10 MG SUPP RECTAL STA (10:59)
--- NOTE | 2016-12-20 11:05 | P.PN ---
Subjective Principal diagnosis: Morbid obesity The patient is a 41-year-old female status post laparoscopic Josue-en-Y gastric bypass. This morning she reports abdominal distention and gas pains. She is tolerating liquid diet. No reports of fevers or chills. She gets up a bowel movement. Objective - Vital Signs Vital signs: Vital Signs Temp 98.3 F 12/20/16 07:00 Pulse 94 12/20/16 08:14 Resp 15 12/20/16 07:00 BP 109/73 12/20/16 07:00 Pulse Ox 93 L 12/20/16 07:00 Intake & Output 12/19/16 12/20/16 12/20/16 18:59 06:59 18:59 Intake Total 1450 590 Output Total 125 1100 Balance 1325 590 -1100 Weight 108.862 kg Intake: IV 1450 Oral 590 Output: Urine 105 1100 Estimated Blood Loss 20 Other: Voiding Method Toilet Toilet # Voids 300 2 - Exam GENERAL: Well developed and in no acute distress. Pleasant. HEENT: No sclera icterus. Extraocular movements grossly intact. Moist buccal mucosa. Head is atraumatic, normocephalic. Hears conversational speech. No nasal drainage. NECK: Supple without lymphadenopathy. No JV distention. CHEST: Non-labored respirations and equal bilateral excursions. CARDIOVASCULAR: Regular rate and rhythm. Palpable 2+ radial pulses. ABDOMEN: Soft. Mild to moderate distention. Laparoscopic sites clean dry and intact without infection. Left upper quadrant dressing with minimal shadowing. MUSCULOSKELETAL: No clubbing, cyanosis or edema. NEUROLOGIC: No focal or lateralizing signs. PSYCH: Appropriate affect. Alert and oriented to person, place and time. - Labs CBC & Chem 7: 12/20/16 06:14 12/20/16 06:14 Labs: Abnormal Lab Results - Last 24 Hours (Table) 12/20/16 12/20/16 Range/Units 06:14 06:14 WBC 12.1 H (3.8-10.6) k/uL Neutrophils # 9.8 H (1.3-7.7) k/uL Chloride 108 H (98-107) mmol/L Assessment and Plan (1) Morbid obesity with BMI of 40.0-44.9, adult Status: Acute (2) S/P bariatric surgery Status: Acute (3) Liver cirrhosis secondary to WHITAKER Status: Acute (4) Hepatomegaly Status: Acute (5) Hypertension Status: Acute (6) Sleep apnea Status: Acute Plan: 1. She is was started on Dulcolax suppository including Reglan to help with gastric motility. 2. Discharge instructions reviewed including immediate follow-up within 48 to 72 hours. 3. Protein shakes to start on postoperative day #4. 4. Continue hospitalization pending resolution of gas pains.
[2016-12-20] MEDS: HYDROmorphone 1 MG/ML 1 ML SYRINGE IVP PRN ×3 (14:32→21:11)
--- NOTE | 2016-12-20 15:42 | P.PN ---
Progress Note - Text Patient re-eval it this evening secondary to abdominal distention. She describes minimal relief with suppository and Reglan. We'll obtain abdominal films. Continue with hospitalization.
--- NOTE | 2016-12-20 16:37 | P.OP ---
Date of Procedure: 12/19/16 Description of Procedure: DESCRIPTION OF PROCEDURE(S): SURGEON: PARVEEN TRIMBLE MD SANITOR: ELIZABETH HERNANDEZ. PREOPERATIVE DIAGNOSES: 1. Morbid obesity due to excess calories. 2. Body mass index reduced from 41.7 down to 40.1. 3. Tachycardia. 4. Obstructive sleep apnea. 5. Osteoarthritis of bilateral hips. 6. Osteoarthritis of lower back. 7. Osteoarthritis of bilateral knees. 8. Family history of morbid obesity. 9. Family history of diabetes type 2. 10. Hypertensive heart disease. 11. History of elevated liver enzymes. 12. Gastroesophageal reflux disease. 13. Dietary surveillance and counseling. 14. Chronic gastritis. 15. Superficial gastric ulcers. 16. Elevated AST. 17. Elevated ALT. 18. Hypertriglyceridemia. 19. Hypercholesterolemia. 20. Hypocalcemia. 21. Hyperphosphatemia. 22. Erosive esophagitis. POSTOPERATIVE DIAGNOSES: 1. Morbid obesity due to excess calories. 2. Body mass index reduced from 41.7 down to 40.1. 3. Tachycardia. 4. Obstructive sleep apnea. 5. Osteoarthritis of bilateral hips. 6. Osteoarthritis of lower back. 7. Osteoarthritis of bilateral knees. 8. Family history of morbid obesity. 9. Family history of diabetes type 2. 10. Hypertensive heart disease. 11. History of elevated liver enzymes. 12. Gastroesophageal reflux disease. 13. Dietary surveillance and counseling. 14. Chronic gastritis. 15. Superficial gastric ulcers. 16. Elevated AST. 17. Elevated ALT. 18. Hypertriglyceridemia. 19. Hypercholesterolemia. 20. Hypocalcemia. 21. Hyperphosphatemia. 22. Erosive esophagitis. 23. Intra-abdominal adhesions right lower quadrant transverse colon to small bowel. 24. Incarcerated incisional hernia 3 cm from previous Pfannenstiel incision C- section involving omentum. 25. Liver cirrhosis secondary to nonalcoholic fatty liver disease. 26. Severe hepatomegaly. OPERATION: 1. Laparoscopic reduction of incarcerated Pfannenstiel incision, 3 cm. 2. Laparoscopic Josue-en-Y gastric bypass, 100 cm antecolic and gastric Josue limb , with 25 mm EEA. 3. Laparoscopic lysis of adhesions right lower quadrant transverse colon to small bowel. 4. Intraoperative esophagogastrojejunoscopy. 5. Application of OptiFoam dressing. 6. Attempted percutaneous liver biopsy. ANESTHESIA: 90 mL quarter percent Marcaine with epinephrine. ESTIMATED BLOOD LOSS: 20 mL SPECIMENS REMOVED: None. COMPLICATIONS: None. INDICATIONS: The patient is a very pleasant, 41-year-old female who presents with morbid obesity as her body mass index was 41.7. Highest lifetime weight 250 pounds. [place] body weight of 149 pounds. Height of 5 feet 5 inches. Her body mass index has been reduced from 41.7 down to 39.9. She has lost 11 pounds in over 2 months. Today she comes in weighing 239 pounds. All surgical options for morbid obesity had been described using the [place] bariatric surgery collaborative comorbidity resolution including complication risk score. The patient had elected for a gastric bypass with possible sleeve gastrectomy. A second-generation bariatric consent form was described in detail including the possibility of protein malnutrition, leaks, gastrojejunal stricture, venous thrombosis for which she demonstrated understanding. Benefits and risks of the procedure were described at length. Informed consent was obtained. DESCRIPTION: The patient was brought into the operating room theater. She was placed on a split leg table. Preoperatively she had received Lovenox subcutaneously for DVT prophylaxis. Additionally she had undergone Peridex oral solution as an oral decontaminant. After general induction, the abdomen was prepped and draped in standard sterile fashion. A Osei catheter was placed. Ioban draping was placed along the abdomen. A 0 10 mm laparoscopic trocar entry was performed along the epigastrium approximately 15 cm distal to the xiphoid process. Her xiphoid to her umbilicus was 24 cm for her height of 5 foot 5 inches. Diagnostic laparoscopy demonstrated no injury to bowel, viscera, or mesentery. Along the lower pelvis was an incarcerated incisional hernia of 3-cm from a previous Pfannenstiel incision involving omentum to the lower abdominal wall. The liver surface was remarkable for yellow liver serosa from severe fatty liver disease with severe hepatomegaly. No injury had occurred to the small bowel or viscera. Along the hiatus no evidence of prominent hiatal hernia was encountered. At the left upper quadrant 2- 12 mm trocars were placed 1 along the left midclavicular line and another along the anterior axillary line. In a mirror-xiong fashion, 2 - 12 mm trocars were also placed along the right upper abdomen in a mirror-xiong fashion. An additional 12 mm port was placed along the right lower quadrant. A separate 5 Mediport was placed along the left lower quadrant The patient was repositioned to supine position with the bed levelled. Attention was brought to the lower pelvis whereby the incarcerated incisional hernia defect was reduced into the abdominal cavity. Additional adhesions between the transverse colon and small bowel of the right lower quadrant was lysed using endoscopic scissors as to decrease risk for internal hernia and small bowel obstruction. The transverse mesocolon, including the omentum, was reflected over the stomach. The ligament of Treitz was identified and measured 60 cm antegrade. The jejunum was divided at the 60 cm point after using metered graspers for measurement. The biliopancreatic limb was held in place by the residential living assistant. The Josue limb was then measured 100 cm distally to avoid tension along the proposed gastrojejunal anastomosis. The Josue limb was marked using a Pearson drain and 2-0 silk on an Endo Stitch along its proximal staple edge. At 100 cm along the anti-mesenteric border of the Josue limb, a jejunojejunostomy was proposed whereby enterotomies were created along the biliopancreatic limb including the Josue limb using a suction Bovie cautery. The enterotomies were widened using a [place]. A bidirectional fire was performed whereby from the right side a 45 mm oliva load was fired. From the left side a separate 45 mm firing had occurred, creating a 90 mm jejunojejunostomy. The defect was then closed using a 60 mm oliva load. The jejunojejunostomy was found to be hemostatic. Attention was now brought to the creation of the gastrojejunostomy. The patient was then placed in reverse Trendelenburg. Placement of a medium size Shae liver retractor was used to elevate the left lobe of the liver for greater visualization of the upper abdomen, particularly the superior pole of the stomach. The Shae liver retractor was held in place using an iron internal combustion engine subassembler. Along the lesser curvature of the stomach between the second and third veins, dissection was made along the retrogastric space to allow first firing of the Covidien Tri-Staple purple load. Once adequately mobilized, an initial firing using a 60 mm purple load was performed perpendicular to the lesser curvature of the stomach. To completely divide the pouch from the remnant stomach, three 60 mm purple loads were fired towards the angle of His. Additional staplers were used to completely divide the stomach from the gastric pouch as she had redundant posterior stomach. A total of 6 staplers were used to create the gastric pouch : 3 - 60 mm purple, 1 - 60 mm oliva angled, 2 - 45 mm oliva Covidien tri-stapler loads used to create the gastric pouch.Hemostasis was checked. The patient was then prepared for placement of a Orvil. The patient was Mallampati 3. A 25-mm Orvil was selected for placement by the nurse master machinist. The Orvil tubing was placed anterior to the staple line of the gastric pouch and brought out through the left inferior lateral port along the residential living assistant port. The Orvil was then carefully and successfully navigated with the help of the nurse master machinist into the gastric pouch. The sutures were identified and divided. The tubing was from the 25 mm anvil. Using aseptic technique all instruments including port sites were exchanged. As the Orvil had been placed, the blind jejunal limb was brought proximally into the upper abdomen. The transverse mesocolon was cleaved using a Harmonic scalpel. The patient was repositioned in reverse Trendelenburg. No torsion was found upon the Josue limb. No tension was identified as the limb was brought along the upper abdomen. The blind jejunal limb was opened using a cordless Harmonic scalpel. The 25-mm EEA stapler was brought through the left anterior lateral port site from the left side. Please note that the trocars from the Orvil tubing, including the port, were removed to minimize contamination from the oral janell. The EEA stapler was brought through the open jejunal limb and its needle was deployed at the antimesenteric border where the anvil were mated for approximately 1 minute upon firing. The stapler was removed after irrigating the shaft of the instrument with warm normal saline. Donuts were found to be intact and thick on both sides. The open jejunal limb defect was closed using a 60 mm oliva load after releasing any tension from the blind jejunal limb. Hemostasis was checked with Sonicision along the blind jejunal limb mesentery. Care was taken to avoid any long blind limb and to avoid candycane syndrome. No reinforcement sutures were needed along the gastrojejunal anastomosis. Closure of the mesenteric defects was performed, initially of the Massey defect using 2-0 silk on an Endo Stitch and a Lapra-Ty and the jejunojejunostomy mesenteric defect. I then went to the head of the bed to perform the esophagogastrojejunoscopy and a leak test. An Olympus gastroscope was passed along the posterior oropharynx which was unremarkable for any injury to the vocal cords. The scope was passed down to the proximal portion of the pouch, whereby no active bleeding was encountered. Excellent visualization of the gastrojejunostomy anastomosis, including the Josue limb was encountered with endoscopic image obtained. The anastomosis was found to be patent. The gastrointestinal tract was desufflated. No evidence of intraoperative leak was encountered as the gastric pouch and anastomosis were submerged under normal saline solution. I then went back to the bedside of the patient, whereby with coordinated effort of the residential living assistant, irrigation was aspirated from the upper abdominal cavity. Tisseel was placed circumferentially over the anastomosis of the gastrojejunostomy. The fascial defect of the left upper quadrant corresponding to the EEA stapler entry was oversewn using 2-0 Vicryl and Endo Stitch. Attention was brought to the right lobe of the liver whereby a 16-Tajik percutaneous liver biopsy at least 3 tries were performed however the spring- loaded biopsy device was defective. Hemostasis was checked. All instruments and pneumoperitoneum were evacuated from the abdominal cavity. The port correlating with the EEA stapler device was copiously irrigated with 3 L of warm normal saline solution and 50 mL of hydrogen peroxide. The rest of incisions were reapproximated using 3-0 Vicryl for deep subcutaneous tissue and dermis followed by 4-0 Monocryl in a running subcuticular fashion. The incision of the left upper quadrant involving the EEA stapler was loosely approximated using 4-0 Monocryl. For local anesthetic, 90 mL of local anesthetic was used along the skin for postop analgesia. Dermabond was applied to the skin. OptiFoam dressing was placed along the EEA stapler site. At the end of the procedure, needle, sponge and instrument count had been verified correct by the surgical services asst. She had tolerated the procedure well and was taken to the postanesthesia unit in stable condition. Total skin to skin time was 142 minutes. FINDINGS: 1. Negative intraoperative esophagogastrojejunoscopy leak test. 2. Severe fatty liver disease with hepatocellular findings consistent with early cirrhosis. 3. All defects including jejunojejunostomy Massey defects were closed. 4. Total of 6 staple loads including 3 - 60 mm purple, 1 - 60 mm oliva angled, 2 - 45 mm oliva Covidien tri-stapler loads used to create the gastric pouch. 5. Gastrojejunostomy created using 25 mm Orvil. 6. Jejunojejunostomy created with 90 mm bautista-lumen 7. Xiphoid to umbilical height of 24 cm. 8. Attempted liver biopsy performed with percutaneous 16-Tajik needle 9. 100 cm Josue limb. 10. No reinforcement sutures needed along gastrojejunal anastomosis. 11. Incarcerated fat-containing hernia from previous pfannenstiel of 3 cm reduced.
--- NOTE | 2016-12-20 17:24 | XR ---
EXAMINATION TYPE: XR abdomen 2V DATE OF EXAM: 12/20/2016 4:33 PM CLINICAL HISTORY: Abdominal distention, history of gastric bypass surgery yesterday. TECHNIQUE: Supine and upright views of the abdomen are obtained. COMPARISON: None. FINDINGS: Gas prominent bowel loops throughout the abdomen and pelvis particularly colonic loops are seen. No pneumoperitoneum is identified. Linear densities in pelvis are felt to reflect Essure tubes. There is patchy left basilar atelectasis and/or infiltrate. Osseous structures are intact. IMPRESSION: Overall nonspecific bowel gas pattern. Favor postoperative ileus. Patchy left basilar at electasis and/or infiltrate is noted.
[2016-12-20] MEDS: METOCLOPRAMIDE 5 MG/ML 2 ML VIAL IVP SCH ×2 (21:09→23:02)
[2016-12-21] MEDS: HYDROcodone/APAP 15 ML SOLUTION PO PRN ×4 (00:17→16:56)
[2016-12-21] MEDS: HYDROmorphone 1 MG/ML 1 ML SYRINGE IVP PRN ×2 (02:03→09:45)
[2016-12-21] MEDS: METOCLOPRAMIDE 5 MG/ML 2 ML VIAL IVP SCH ×2 (05:35→12:12)
[2016-12-21] MEDS: SIMETHICONE 40 MG/0.6 ML DROPS 2,000 MG/30 ML BOTTLE PO SCH ×2 (05:35→11:48)
[2016-12-21] MEDS: 0.9% NACL WITH KCL 20 MEQ/L 1,000 ML IV SCH ×2 (05:35→14:00)
[2016-12-21] MEDS: HYOSCYAMINE ORAL DROPS 1.875 MG/15 ML BOTTLE PO SCH ×2 (05:35→11:48)
[2016-12-21] MEDS: LACTATED RINGERS 1,000 ML IV SCH (05:36)
[2016-12-21 06:27] LABS: Basophils % (A) 0 %; CH 30.3; Eosinophils % (A) 0 %; HCT 35.1 % (34.0-46.0); HDW 2.42; HGB 11.8 gm/dL (11.4-16.0); Luc % (Auto) 2; Lymphocytes % (A) 8 %; MCH 31.1 pg (25.0-35.0); MCHC 33.7 g/dL (31.0-37.0); MCV 92.3 fL (80.0-100.0); Mean Platelet Volume 6.7; Monocytes # (A) 0.5 k/uL (0-1.0); Monocytes % (A) 4 %; Neutrophils # (A) 10.9 k/uL (1.3-7.7); Neutrophils % (A) 85 %; RDW 13.6 % (11.5-15.5); WBC 12.8 k/uL (3.8-10.6); WBC (Perox) 12.87
[2016-12-21 06:38] LABS: Anion Gap 7 mmol/L; Blood Urea Nitrogen 9 mg/dL (7-17); Calcium 8.3 mg/dL (8.4-10.2); Carbon Dioxide 22 mmol/L (22-30); Chloride 111 mmol/L (98-107); Glucose 135 mg/dL (74-99); Non-African American GFR(MDRD) >60 (>60 ml/min/1.73 sqM); Potassium 3.8 mmol/L (3.5-5.1); Sodium 140 mmol/L (137-145)
[2016-12-21] MEDS ORDERED: BISACODYL 5 MG TABLET.DR PO PRN (08:00)
[2016-12-21] MEDS: ALBUTEROL NEBULIZED 2.5 MG/3 ML INHALATION SCH ×3 (08:26→15:15)
[2016-12-21] MEDS: PANTOPRAZOLE 40 MG/10 ML VIAL IV SCH (09:31)
[2016-12-21] MEDS: ENOXAPARIN 40 MG/0.4 ML SYRINGE SQ SCH (09:31)
--- NOTE | 2016-12-21 10:44 | P.PN ---
Subjective Principal diagnosis: Morbid obesity The patient is a 41-year-old female status post laparoscopic Josue-en-Y gastric bypass. Yesterday she had moderate ileus. Abdominal x-ray confirmed ileus. She was able to pass flatus this morning however she still reports gas pole. She is still using the large pain meds to control her pain. She is ambulating. She reports as expected left upper quadrant pain. Objective - Vital Signs Vital signs: Vital Signs Temp 98.6 F 12/21/16 07:00 Pulse 92 12/21/16 08:35 Resp 14 12/21/16 07:00 BP 110/75 12/21/16 07:00 Pulse Ox 97 12/21/16 08:27 Intake & Output 12/20/16 12/21/16 12/21/16 18:59 06:59 18:59 Intake Total 600 1200 450 Output Total 1100 Balance -500 1200 450 Intake: Intake, IV Titration 1200 Amount 0.9% NaCl with KCl 20 Meq 600 /l 1,000 ml @ 100 mls/hr IV .Q10H [facility] Rx#: [id number] ceFAZolin 2 gm In Sodium 600 Chloride 0.9% 100 ml @ 100 mls/hr IVPB ONCE STA Rx#:[id number] Oral 600 450 Output: Urine 1100 Other: Voiding Method Toilet Toilet - Exam GENERAL: Well developed and in no acute distress. Pleasant. HEENT: No sclera icterus. Extraocular movements grossly intact. Moist buccal mucosa. Head is atraumatic, normocephalic. Hears conversational speech. No nasal drainage. NECK: Supple without lymphadenopathy. No JV distention. CHEST: Non-labored respirations and equal bilateral excursions. CARDIOVASCULAR: Regular rate and rhythm. Palpable 2+ radial pulses. ABDOMEN: Soft. Mild distention. Laparoscopic sites clean dry and intact without infection. Left upper quadrant with mild tenderness. MUSCULOSKELETAL: No clubbing, cyanosis or edema. NEUROLOGIC: No focal or lateralizing signs. PSYCH: Appropriate affect. Alert and oriented to person, place and time. - Labs CBC & Chem 7: 12/21/16 06:10 12/21/16 06:10 Labs: Abnormal Lab Results - Last 24 Hours (Table) 12/21/16 12/21/16 Range/Units 06:10 06:10 WBC 12.8 H (3.8-10.6) k/uL Neutrophils # 10.9 H (1.3-7.7) k/uL Chloride 111 H (98-107) mmol/L Glucose 135 H (74-99) mg/dL Calcium 8.3 L (8.4-10.2) mg/dL - Imaging and Cardiology Abdominal x-ray: report reviewed, image reviewed (Consistent with ileus) Assessment and Plan (1) Morbid obesity with BMI of 40.0-44.9, adult Status: Acute (2) S/P bariatric surgery Status: Acute (3) Liver cirrhosis secondary to WHITAKER Status: Acute (4) Hepatomegaly Status: Acute (5) Hypertension Status: Acute (6) Sleep apnea Status: Acute Plan: 1. Recommend chewing gum to help with stimulating the gastrointestinal tract. 2. Recommend additional Dulcolax suppository. 3. I discussed with her cutting back on narcotics as to decrease risk for ileus. 4. We will reevaluate later on today for potential discharge.
[2016-12-21] MEDS ORDERED: BISACODYL 10 MG SUPP RECTAL STA (10:45)
[2016-12-21] MEDS ORDERED: LEVOFLOXACIN 500MG-D5W PMX 500 MG in DEXTROSE/WATER 1 100ML.BAG IVPB STA (10:45)
[2016-12-21 15:10] VITALS: BP 115/77; RESP 16; TEMP 98.9
--- NOTE | 2016-12-21 15:33 | P.DS ---
Providers Date of admission: 12/19/16 06:26 Expected date of discharge: 12/20/16 Attending physician: Margo Frye Primary care physician: Eddi Pineda - Discharge Diagnosis(es) (1) Morbid obesity with BMI of 40.0-44.9, adult Current Visit: Yes Status: Acute (2) S/P bariatric surgery Current Visit: Yes Status: Acute (3) Liver cirrhosis secondary to WHITAKER Current Visit: Yes Status: Acute (4) Hepatomegaly Current Visit: Yes Status: Acute (5) Hypertension Current Visit: Yes Status: Acute (6) Sleep apnea Current Visit: Yes Status: Acute Hospital Course: The patient is a 41-year-old female status post gastric bypass and reduction of internal hernia. Postoperatively she was stable. She was treated for acute gastritis distention including gas pains. Prior to discharge she had been tolerating diet and passing flatus. Bariatric discharge instructions were reviewed including immediate follow-up within 48-72 hours at the bariatric center. Pertinent Studies: None Procedures: Laparoscopic gastric bypass, 100 cm Josue limb with 25 mm Orvil. Reduction of incarcerated incisional hernia along Pfannenstiel incision. Laparoscopic lysis of adhesions. Intraoperative esophagogastrojejunoscopy. Patient Condition at Discharge: Stable Plan - Discharge Summary New Discharge Prescriptions: HYDROcodone/APAP [[place] Elixir 7.5-325Mg/15Ml] 15 ml PO Q6HR PRN #480 ml PRN Reason: Pain Discharge Medication List Chlorthalidone [Hygroton] 50 mg PO DAILY 10/30/16 [History] Gabapentin [Neurontin] 600 mg PO HS 10/30/16 [History] Rizatriptan Odt [Maxalt [employer]URITY CONTROL ROOM OFFICER] 10 mg PO Q2H PRN 10/30/16 [History] Venlafaxine HCl [Effexor] 75 mg PO BID 10/30/16 [History] Temazepam [Restoril] 15 - 30 mg PO HS PRN 11/24/16 [History] Omeprazole 40 mg PO DAILY #90 capsule. 11/28/16 [Rx] HYDROcodone/APAP [[place] Elixir 7.5-325Mg/15Ml] 15 ml PO Q6HR PRN #480 ml [Rx] Hyoscyamine Oral Drops [Levsin Drops] 0.125 mg PO Q6HR #0 ml 12/20/16 [Rx] Simethicone 40 mg/0.6 ml Drops [Mylicon Drops] 40 mg PO Q6HR ml 12/20/16 [Rx] Follow up Appointment(s)/Referral(s): Margo Frye MD [STAFF PHYSICIAN] - 12/22/16 10:30 am Patient Instructions/Handouts: Hydrocodone/Acetaminophen (By mouth), Nutrition after Bariatric Surgery (GEN), Josue-en-Y Gastric Bypass (GEN) Activity/Diet/Wound Care/Special Instructions: No lifting over 4 pounds in 4 weeks. Start protein diet on 12/22/2016. Do not remove dressing until seen by provider. Discharge Disposition: HOME SELF-CARE
[2016-12-21 15:54] VITALS: PULSE 96
--- NOTE | 2016-12-24 13:29 | CDI ---
In responding to this query, please exercise your independent professional judgment. The [facility] Coding Staff and Clinical Documentation Specialists appreciate your assistance in clarifying documentation, maintaining compliance with coding guidelines, accurately documenting patients condition and capturing severity of illness. The fact that a question is asked does not imply that any particular answer is desired or expected. Communication forms are a method of clarifying documentation and are not made part of the Legal Health Record. Thank you in advance for your clarification. Last Revision, October 2015 Ernie Greene [address] [place] [address] Documentation Clarification Form Date: 12/24/2016 1:15:00 PM From: Afsaneh Morrison [facility] & Kita Silvestre, Junior Administrative Assistant & Kita = [phone] Admit Date: 12/19/2016 6:26:00 AM Patient Name: Alice Martinez Visit Number: [id number] Discharge Date: 12-21-16 Dr. Margo Frye Please confirm if ileus noted on 12-21-16 is to be considered a postoperative complication or not to be considered a postoperative complication. Ileus is documented in the 12-21-16 Progress Note as "yesterday she had a moderate ileus. Abdominal Xray confirmed ileus". Patients Admitting Diagnosis: morbid obesity. Post-Operative Diagnosis: Morbid obesity, incarcerated incisional hernia, adhesions, WHITAKER, hepatomegaly, chronic gastritis. Procedure performed: Josue-en-Y gastric bypass, repair incisional hernia. lysis of adhesions, attempted percutaneous liver biopsy. History/Risk Factors: Required large amounts of pain medicine to control pain. Treatment: Dietary suggestions, pain medication. No NG, no further xrays. Consults: None In order to accurately reflect this patients severity of illness, please clarify if the post-operative diagnosis is: An expected post-procedural or post-surgical condition Integral to the procedure Inherent to the procedure An unexpected post-procedural or post-surgical condition, related to the patients underlying medical comorbidities Other, please specify Unable to determine Please document in your progress notes and discharge summary in order to capture severity of illness and risk of mortality. Include clinical findings that support your diagnosis. FYI: Press F11 to launch patient chart Place X here if this finding has no clinical significance, is not applicable or if you are not able to provide any additional documentation. Ileus is inherent and expected to follow from her procedure AND NOT A COMPLICATION. ANGEL
--- NOTE | 2016-12-30 16:49 | CDI ---
In responding to this query, please exercise your independent professional judgment. The [facility] Coding Staff and Clinical Documentation Specialists appreciate your assistance in clarifying documentation, maintaining compliance with coding guidelines, accurately documenting patients condition and capturing severity of illness. The fact that a question is asked does not imply that any particular answer is desired or expected. Communication forms are a method of clarifying documentation and are not made part of the Legal Health Record. Thank you in advance for your clarification. Last Revision, Sep 2016 Ernie Greene [address] [place] [address] Documentation Clarification Form Date: 12/30/2016 4:44:00 PM From: Afsaneh Morrison [facility] & Kita Silvestre, [employer] & [employer] = [phone] Admit Date: 12/19/2016 6:26:00 AM Patient Name: Alice Martinez Visit Number: [id number] Discharge Date: 12-21-16 Dr. Margo Frye Thank you for your written response to the query, answered as Ileus is inherent and expected to follow from her procedure and not a complication. Please dictate an addendum to the chart for completion. Please confirm if ileus noted on 12-21-16 is to be considered a postoperative complication or not to be considered a postoperative complication. Ileus is documented in the 12-21-16 Progress Note as "yesterday she had a moderate ileus. Abdominal Xray confirmed ileus". Patients Admitting Diagnosis: morbid obesity. Post-Operative Diagnosis: Morbid obesity, incarcerated incisional hernia, adhesions, WHITAKER, hepatomegaly, chronic gastritis. Procedure performed: Josue-en-Y gastric bypass, repair incisional hernia. lysis of adhesions, attempted percutaneous liver biopsy. History/Risk Factors: Required large amounts of pain medicine to control pain. Treatment: Dietary suggestions, pain medication. No NG, no further xrays. Consults: None In order to accurately reflect this patients severity of illness, please clarify if the post-operative diagnosis is: An expected post-procedural or post-surgical condition Integral to the procedure Inherent to the procedure An unexpected post-procedural or post-surgical condition, related to the patients underlying medical comorbidities Other, please specify Unable to determine Please document in your progress notes and discharge summary in order to capture severity of illness and risk of mortality. Include clinical findings that support your diagnosis. FYI: Press F11 to launch patient chart Place X here if this finding has no clinical significance, is not applicable or if you are not able to provide any additional documentation. PLEASE SEE ADDENDUM FOR 12/21/16......ILEUS IS NOT A COMPLICATION, IT IS INHERENT TO THE PROCEDURE...... NEETAD
== END 2016-12-21 17:00 | disposition home or self-care (01) | DRG 620 ==
LOC: 2ORWHC 06:26 → 3SUR 10:35
PROVIDERS: ADMIT Surgery Plastic and Reconstructive Surgery; ATTEND Surgery Plastic and Reconstructive Surgery
PROC: 0WQF4ZZ Repair Abdominal Wall, Percutaneous Endoscopic Approach (ICD-10-PCS; 2016-12-19)
PROC: 0DJ08ZZ Inspection of Upper Intestinal Tract, Via Natural or Artificial Opening Endoscopic (ICD-10-PCS; 2016-12-19)
PROC: 0D164ZA Bypass Stomach to Jejunum, Percutaneous Endoscopic Approach (ICD-10-PCS; principal; 2016-12-19 07:30)
DX: E66.01 Morbid (severe) obesity due to excess calories (principal); K43.0 Incisional hernia with obstruction, without gangrene; E88.81 Metabolic syndrome and other insulin resistance; I11.9 Hypertensive heart disease without heart failure; K22.10 Ulcer of esophagus without bleeding; E83.51 Hypocalcemia; K66.0 Peritoneal adhesions (postprocedural) (postinfection); Z68.41 Body mass index [BMI] 40.0-44.9, adult; R16.0 Hepatomegaly, not elsewhere classified; K75.81 Nonalcoholic steatohepatitis (NASH); E78.00 Pure hypercholesterolemia, unspecified; E78.1 Pure hyperglyceridemia; E78.5 Hyperlipidemia, unspecified; K25.9 Gastric ulcer, unspecified as acute or chronic, without hemorrhage or perforation; R74.8 Abnormal levels of other serum enzymes; G47.33 Obstructive sleep apnea (adult) (pediatric); K21.0 Gastro-esophageal reflux disease with esophagitis; G43.909 Migraine, unspecified, not intractable, without status migrainosus; R06.83 Snoring; R32 Unspecified urinary incontinence; F41.0 Panic disorder [episodic paroxysmal anxiety]; M79.3 Panniculitis, unspecified; K74.60 Unspecified cirrhosis of liver; K29.50 Unspecified chronic gastritis without bleeding; M16.0 Bilateral primary osteoarthritis of hip; M17.0 Bilateral primary osteoarthritis of knee; M47.816 Spondylosis without myelopathy or radiculopathy, lumbar region; F31.9 Bipolar disorder, unspecified; F41.9 Anxiety disorder, unspecified; R14.1 Gas pain; R14.0 Abdominal distension (gaseous); R00.0 Tachycardia, unspecified; Z81.8 Family history of other mental and behavioral disorders; Z98.51 Tubal ligation status; Z88.8 Allergy status to other drugs, medicaments and biological substances; Z83.3 Family history of diabetes mellitus; Z87.891 Personal history of nicotine dependence; Z79.899 Other long term (current) drug therapy; Z80.49 Family history of malignant neoplasm of other genital organs; Z87.42 Personal history of other diseases of the female genital tract; Z87.448 Personal history of other diseases of urinary system; Z82.0 Family history of epilepsy and other diseases of the nervous system; Z83.49 Family history of other endocrine, nutritional and metabolic diseases; Z79.1 Long term (current) use of non-steroidal anti-inflammatories (NSAID); Z71.3 Dietary counseling and surveillance; Z53.8 Procedure and treatment not carried out for other reasons
CPT/HCPCS: 74020; 80048; 80051; 80053; 81025; 82310; 82565; 83735; 84100; 84520; 85025; 93005; 94640; 94760

== ENCOUNTER → 2016-12-22 | Outpatient (CLI) | payer BC ==
[2016-12-22 11:15] VITALS: BP 135/93; PULSE 89; RESP 16; TEMP 98.8; BMI 41.4
--- NOTE | 2017-02-15 10:02 | PN ---
DATE OF SERVICE: 12/22/2016 CHIEF COMPLAINT: Follow up for gastric bypass including reduction of incarcerated incisional hernia. HISTORY OF PRESENT ILLNESS: Alice Martinez is a 41-year-old female who is status post Josue-en-Y gastric bypass on 12/19/2016. She is approximately 3 days postop. She reports swelling of her bilateral legs although minimal. She is tolerating liquids. At her height of 5 feet 5 inches, her ideal body weight is 149 pounds. Her original weight was 250 pounds. Today she comes in weighing 249 pounds. Her weight has essentially been unchanged. Body mass index is down from 41.7 down to 41.5. PHYSICAL EXAM: VITAL SIGNS: 98.8, 89, 16, 135/93. ABDOMEN: Matt drain was discontinued from the left upper quadrant. No signs of infection. GENERAL: Well-developed, pleasant female in no acute distress. HEENT: No sclerae icterus. Extraocular movements grossly intact. Moist buccal mucosa. NECK: Supple without lymphadenopathy. CHEST: Nonlabored respirations. Equal bilateral excursions. CARDIOVASCULAR: Regular rate and rhythm. MUSCULOSKELETAL: No clubbing, cyanosis. 1+ bilateral pitting edema. PSYCH: Appropriate affect. Alert and oriented to person, place, and time. NEURO: No focal or lateralizing signs. Cranial nerves II through XII grossly within normal limits. ASSESSMENT: 1. Morbid obesity due to excess calories. 2. Body mass index reduced from 41.7 to 41.5. 3. Status post Josue-en-Y gastric bypass. PLAN: 1. I have recommended local wound care with antibacterial soap and water to minimize risk of postoperative infection. 2. She may shower. 3. Start of her protein shakes. 4. Recommend follow up within 5 days. [facility]
== END | disposition home or self-care (01) ==
LOC: BARWHC3 10:16
PROVIDERS: ATTEND Surgery Plastic and Reconstructive Surgery
DX: Z01.818 Encounter for other preprocedural examination (principal); E66.01 Morbid (severe) obesity due to excess calories; Z68.41 Body mass index [BMI] 40.0-44.9, adult; F32.9 Major depressive disorder, single episode, unspecified; F41.9 Anxiety disorder, unspecified; Z87.891 Personal history of nicotine dependence
CPT/HCPCS: 99211

== ENCOUNTER → 2016-12-25 | Outpatient (CLI) | payer BC ==
--- NOTE | 2016-12-25 12:29 | P.PN ---
Progress Note - Text To whom it may concern: Alice Martinez is under my surgical care. She may return to work with restrictions of no lifting over 4 pounds on Thursday, Dec 31 2016. Regards, Margo Frye MD, FACS
[2016-12-25 12:51] VITALS: BMI 38.9
[2016-12-25 14:00] VITALS: BP 129/79; PULSE 81; TEMP 98.6
--- NOTE | 2016-12-26 14:56 | P.PN ---
Progress Note - Text To whom it may concern: Alice Martinez is under my surgical care. She underwent surgery December 19 with discharge on December 21. She may return to work with restrictions of no lifting over 4 pounds on Thursday, Jan 07 2017. Regards, Margo Frye MD, FACS
--- NOTE | 2017-02-19 11:21 | P.PN ---
Progress Note - Text DATE OF SERVICE: 12/25/2016 CHIEF COMPLAINT: Follow-up Josue-en-Y gastric bypass including lysis of adhesions. HISTORY OF PRESENT ILLNESS: Alice Martinez is a pleasant 41-year-old female, status post Josue-en-Y gastric bypass on 12/11/2016. She is now approximately a little over 1 to almost 2 weeks out. She reports feeling quite well. At her height of 5 feet 5 inches, her ideal body weight is 149 pounds. Highest weight of 250 pounds. Today she comes in weighing 234 pounds. She has lost 16 pounds. She has already lost 14 pounds in approximately less than 1-2 weeks. Body mass index is reduced from 41.7 down to 39. She still is 85 pounds overweight. She is off her medications with regards to her blood pressure medication. PHYSICAL EXAM: VITAL SIGNS: 98.6, 81, 12, 129/79; 5 foot 5, 234 pounds. Body mass index of 39. ABDOMEN: Soft, nontender, nondistended. All incisions clean, dry and intact. No signs of infection. MUSCULOSKELETAL: No clubbing, cyanosis, or edema. GENERAL: Well-developed, pleasant female in no acute distress. HEENT: No sclerae icterus. Extraocular movements grossly intact. Moist buccal mucosa. NECK: Supple without lymphadenopathy. CHEST: Nonlabored respirations. Equal bilateral excursions. CARDIOVASCULAR: Regular rate and rhythm. 2+ bilateral pitting edema. PSYCH: Appropriate affect. Alert and oriented to person, place, and time. NEURO: No focal or lateralizing signs. Cranial nerves II through XII grossly within normal limits. ASSESSMENT: 1. Morbid obesity due to excess calories. 2. Body mass index reduced from 41.7 down to 39. 3. Status post Josue-en-Y gastric bypass. PLAN: 1. She has done fairly well with regards to her blood pressure medication has been adjusted. 2. I have recommended follow-up at minimum 4 weeks postop.
== END | disposition home or self-care (01) ==
LOC: BARWHC3 10:24
PROVIDERS: ATTEND Surgery Plastic and Reconstructive Surgery
DX: E66.01 Morbid (severe) obesity due to excess calories (principal)
CPT/HCPCS: 97803; 99211

== ENCOUNTER → 2016-12-31 | Outpatient (CLI) | payer BC ==
[2016-12-31 13:02] VITALS: BP 134/72; PULSE 81; RESP 16; TEMP 98.1
--- NOTE | 2017-02-16 09:18 | PN ---
DATE OF SERVICE: 12/31/2016 CHIEF COMPLAINT: Follow-up gastric bypass. HISTORY OF PRESENT ILLNESS: Alice is 41-year-old female status post Josue-en-Y gastric bypass 12/19/2016. She is now 2 weeks out. Today she comes in primarily for her dietary modification. She reports walking at least 3 miles a day. She is off all her hypertension medications. She is also off her Neurontin. For her height of 5 feet 5 inches, her ideal body weight is 149 pounds. Initial weight was 250 pounds. Today she comes weighing 225 pounds. She has lost 25 pounds in approximately 2 weeks. Percent excess weight loss is at 25%. Body mass index is now reduced from 41.7 down to 37.5. She has lost over 8 to 9 pounds in barely one week. PHYSICAL EXAM: VITAL SIGNS: 98.1, 81, 16, 134/72; 5 foot 5, 225 pounds. ABDOMEN: Soft, nontender, nondistended. All wounds completely granulated. No signs of infection or cellulitis. MUSCULOSKELETAL: No clubbing, cyanosis, or edema. GENERAL: Well-developed, pleasant female in no acute distress. HEENT: No sclerae icterus. Extraocular movements grossly intact. Moist buccal mucosa. NECK: Supple without lymphadenopathy. CHEST: Nonlabored respirations. Equal bilateral excursions. CARDIOVASCULAR: Regular rate and rhythm. 2+ bilateral pitting edema. PSYCH: Appropriate affect. Alert and oriented to person, place, and time. NEURO: No focal or lateralizing signs. Cranial nerves II through XII grossly within normal limits. ASSESSMENT: 1. Morbid obesity due to excess calories. 2. Body mass index reduced from 41.7 down to 37.5. 3. Status post Josue-en-Y gastric bypass. 4. Hypertension, resolved. PLAN: 1. Should continue with her protein intake at this time. 2. She has done extremely well with already losing upwards of 25 pounds in 9 days. 3. I have recommended follow-up at least one month postop. [facility]
== END | disposition home or self-care (01) ==
LOC: BARWHC3 12:49
PROVIDERS: ATTEND Surgery Plastic and Reconstructive Surgery
DX: Z48.815 Encounter for surgical aftercare following surgery on the digestive system (principal); E66.01 Morbid (severe) obesity due to excess calories; Z68.37 Body mass index [BMI] 37.0-37.9, adult; Z98.84 Bariatric surgery status
CPT/HCPCS: 99211

== ENCOUNTER → 2017-01-22 | Outpatient (CLI) | payer BC ==
[2017-01-22 12:08] VITALS: BP 128/79; PULSE 70; RESP 18; TEMP 98.6; BMI 35.9
--- NOTE | 2017-02-21 19:32 | P.PN ---
Progress Note - Text DATE OF SERVICE: 01/22/2017 CHIEF COMPLAINT: Follow-up gastric bypass. HISTORY OF PRESENT ILLNESS: Alice is 41-year-old female status post Josue-en-Y gastric bypass 12/19/2016. She is over 1 month out. She denies any esophageal reflux disease. She reports increased flatus. She reports constipation. She also reports increased intolerance to dairy products. For her height of 5 feet 5 inches, her ideal body weight is 149 pounds. Initial weight was 250 pounds. Today she comes weighing 215 pounds. She has lost another 10 pounds in approximately 2 weeks. Total weight loss is 35 pounds. Percent excess weight loss is 35%. Body mass index is now reduced from 41.7 down to 35.9. PHYSICAL EXAM: VITAL SIGNS: 5 foot 5, 215 pounds. BMI 35.9. Vital Signs Temp 98.6 F 01/22/17 11:26 Pulse 70 01/22/17 11:26 Resp 18 01/22/17 11:26 BP 128/79 01/22/17 11:26 Pulse Ox ABDOMEN: Soft, nontender, nondistended. MUSCULOSKELETAL: No clubbing, cyanosis, or edema. GENERAL: Well-developed, pleasant female in no acute distress. HEENT: No sclerae icterus. Extraocular movements grossly intact. Moist buccal mucosa. NECK: Supple without lymphadenopathy. CHEST: Nonlabored respirations. Equal bilateral excursions. CARDIOVASCULAR: Regular rate and rhythm. PSYCH: Appropriate affect. Alert and oriented to person, place, and time. NEURO: No focal or lateralizing signs. Cranial nerves II through XII grossly within normal limits. ASSESSMENT: 1. Morbid obesity due to excess calories. 2. Body mass index reduced from 41.7 down to 35.9 3. Status post Josue-en-Y gastric bypass. 4. Hypertension, resolved. 5. Lactose intolerance. 6. Gastroesophageal reflux disease resolved. PLAN: 1. Recommend goal protein intake over 75 g daily. 2. Recommend decrease intake of dairy products. 3. She may return to work. 4. Bariatric metabolic panel 1 month postop. 5. Follow-up 3 months postop.
== END | disposition home or self-care (01) ==
LOC: BARWHC3 10:44
PROVIDERS: ATTEND Surgery Plastic and Reconstructive Surgery
DX: Z48.815 Encounter for surgical aftercare following surgery on the digestive system (principal); E66.01 Morbid (severe) obesity due to excess calories; Z68.35 Body mass index [BMI] 35.0-35.9, adult; Z71.3 Dietary counseling and surveillance; Z98.84 Bariatric surgery status; E21.1 Secondary hyperparathyroidism, not elsewhere classified; E89.1 Postprocedural hypoinsulinemia; D50.8 Other iron deficiency anemias; E44.0 Moderate protein-calorie malnutrition; E55.9 Vitamin D deficiency, unspecified; K74.1 Hepatic sclerosis; N19 Unspecified kidney failure; K50.90 Crohn's disease, unspecified, without complications
CPT/HCPCS: 97803; 99211

== ENCOUNTER → 2017-01-23 | Outpatient (CLI) | payer BC ==
[2017-01-23 16:38] LABS: CH 29.8; CHCM 33.1; HCT 42.4 % (34.0-46.0); HDW 2.59; HGB 14.1 gm/dL (11.4-16.0); MCHC 33.2 g/dL (31.0-37.0); MCV 90.5 fL (80.0-100.0); Mean Platelet Volume 6.9; RBC 4.69 m/uL (3.80-5.40); RDW 13.3 % (11.5-15.5); WBC 10.8 k/uL (3.8-10.6)
[2017-01-23 16:46] LABS: Partial Thromboplastin Time 27.8 sec (22.0-30.0); Prothrombin Time 10.3 sec (9.0-12.0)
[2017-01-23 16:56] LABS: ALT 60 U/L (9-52); AST 44 U/L (14-36); Alkaline Phosphatase 64 U/L (38-126); Anion Gap 8 mmol/L; Blood Urea Nitrogen 15 mg/dL (7-17); Calcium 9.8 mg/dL (8.4-10.2); Carbon Dioxide 28 mmol/L (22-30); Chloride 107 mmol/L (98-107); Cholesterol 164 mg/dL (<200); Glucose 81 mg/dL (74-99); HDL Cholesterol 37 mg/dL (40-60); Iron 66 ug/dL (37-170); Magnesium 2.3 mg/dL (1.6-2.3); Non-African American GFR(MDRD) >60 (>60 ml/min/1.73 sqM); Phosphorous 3.6 mg/dL (2.5-4.5); Potassium 4.7 mmol/L (3.5-5.1); Sodium 143 mmol/L (137-145); Total Bilirubin 0.3 mg/dL (0.2-1.3); Total Protein 6.8 g/dL (6.3-8.2); Triglycerides 262 mg/dL (<150)
[2017-01-23 17:06] LABS: % Iron Saturation 22.5 % (20-50); Prealbumin 23 mg/dL (18-36); Total Iron Binding Capacity 293 ug/dL (265-497)
[2017-01-23 18:04] LABS: Vitamin B12 >1000 pg/mL (239-931)
[2017-01-23 21:41] LABS: Hemoglobin A1C 5.4 % (4.2-6.1)
[2017-01-27 18:01] LABS: Selenium 124 mcg/L (63-160)
== END ==
LOC: LABWHC1 16:11
PROVIDERS: ATTEND Surgery Plastic and Reconstructive Surgery
DX: Z48.815 Encounter for surgical aftercare following surgery on the digestive system (principal); E66.01 Morbid (severe) obesity due to excess calories; E21.1 Secondary hyperparathyroidism, not elsewhere classified; D50.8 Other iron deficiency anemias; K90.89 Other intestinal malabsorption; E44.0 Moderate protein-calorie malnutrition; E55.9 Vitamin D deficiency, unspecified; K74.1 Hepatic sclerosis; N19 Unspecified kidney failure; K50.90 Crohn's disease, unspecified, without complications; Z98.84 Bariatric surgery status
CPT/HCPCS: 36415; 80053; 80061; 82306; 82525; 82607; 82728; 82746; 83036; 83540; 83550; 83735; 83970; 84100; 84134; 84255; 84425; 84443; 84590; 84630; 85027; 85610; 85730

== ENCOUNTER → 2017-03-25 | Outpatient (CLI) | payer BC ==
[2017-03-25 13:38] VITALS: BP 133/82; PULSE 86; RESP 16; TEMP 99; BMI 32.4
[2017-03-25 15:20] LABS: CH 30.1; CHCM 33.2; HCT 43.6 % (34.0-46.0); HDW 2.27; HGB 14.3 gm/dL (11.4-16.0); MCH 29.9 pg (25.0-35.0); MCHC 32.9 g/dL (31.0-37.0); RBC 4.79 m/uL (3.80-5.40); RDW 14.3 % (11.5-15.5); WBC 9.9 k/uL (3.8-10.6)
[2017-03-25 15:23] LABS: Partial Thromboplastin Time 27.9 sec (22.0-30.0); Prothrombin Time 10.4 sec (9.0-12.0)
[2017-03-25 16:40] LABS: ALT 44 U/L (9-52); AST 38 U/L (14-36); Alkaline Phosphatase 76 U/L (38-126); Anion Gap 10 mmol/L; Blood Urea Nitrogen 12 mg/dL (7-17); Calcium 9.7 mg/dL (8.4-10.2); Carbon Dioxide 28 mmol/L (22-30); Chloride 103 mmol/L (98-107); Cholesterol 171 mg/dL (<200); Glucose 87 mg/dL (74-99); HDL Cholesterol 37 mg/dL (40-60); Iron 88 ug/dL (37-170); Magnesium 2.3 mg/dL (1.6-2.3); Non-African American GFR(MDRD) >60 (>60 ml/min/1.73 sqM); Phosphorous 3.6 mg/dL (2.5-4.5); Potassium 4.4 mmol/L (3.5-5.1); Sodium 141 mmol/L (137-145); Total Bilirubin 0.4 mg/dL (0.2-1.3)
[2017-03-25 16:52] LABS: % Iron Saturation 29.6 % (20-50); Prealbumin 23 mg/dL (18-36); Total Iron Binding Capacity 297 ug/dL (265-497)
[2017-03-25 17:56] LABS: Vitamin B12 >1000 pg/mL (239-931)
[2017-03-25 19:13] LABS: Hemoglobin A1C 5.6 % (4.2-6.1)
[2017-03-31 15:16] LABS: Selenium 170 mcg/L (63-160)
--- NOTE | 2017-04-05 16:33 | P.PN ---
Progress Note - Text DATE OF SERVICE: 03/25/2017 CHIEF COMPLAINT: Bariatric assessment. HISTORY OF PRESENT ILLNESS: Alice Martinez is a 41-year-old female who is status post gastric bypass on 12/19/2016. She reports burping a lot especially after eating. She denies any food being stuck along the throat. She denies any heartburn. She is taking omeprazole. She is also taking her multivitamins. Her personal goal is to get down to 140 pounds. She still reports severe lower back pain. Separately she complains of shoulder groove from the weight of her breasts. She also reports rash including panniculitis. She now presents more than 3 months postop. Her initial weight was 250 pounds. Her ideal body weight for her 5 foot 5 frame is 149 pounds. Today she comes in weighing 195 pounds. She lost 55 pounds in over 3 months. Percent excess weight loss is 55 %. Body mass index is reduced from 41.7 down to 32.4. She is 46 pounds overweight. PAST MEDICAL HISTORY: 1. Hypertension. 2. Sleep apnea. 3. Depression. 4. Gastroesophageal reflux disease. 5. Hyperlipidemia. 6. Generalized fatigue. 7. Urinary incontinence. 8. Panniculitis. 9. Anxiety. 10. Depression. 11. Panic disorder. PAST SURGICAL HISTORY: 1. . 2. Endometrial procedure. 3. Bladder sling. 4. Tubal ligation. 5. Uterine ablation. 6. Upper endoscopy. 7. Status post gastric bypass. MEDICATIONS: 1. Effexor. 2. Restoril. 3. Omeprazole. ALLERGIES: Denies. SOCIAL HISTORY: Former tobacco use. FAMILY HISTORY: Pertinent for morbid obesity. Also has diabetes in her family as well as bipolar disorder, migraines and uterine cancer. REVIEW OF SYSTEMS: CONSTITUTIONAL: Her initial weight was 250 pounds. Her ideal body weight for her 5 foot 5 frame is 149 pounds. Today she comes in weighing 195 pounds. She lost 55 pounds in over 3 months. Percent excess weight loss is 55 %. Body mass index is reduced from 41.7 down to 32.4. She is 46 pounds overweight. HEENT: Denies any troubles with dysphagia. No reports with troubles with vision, hearing or nosebleeds. ENDOCRINE: No reports of known thyroid disorders or blood sugar glucose intolerance. GASTROINTESTINAL: Reports gastroesophageal reflux disease now resolved. Denies any diarrhea. RESPIRATORY: Has obstructive sleep apnea, now resolved. No recent pneumonia. MUSCULOSKELETAL: Has diffuse osteoarthritis including of the lower back and hips and knees, now improved. PSYCH: History of depression, including bipolar disorder. NEURO: No history of stroke or seizure disorder. HEMATOLOGIC: No reports of easy bruising or bleeding. SKIN: Has panniculitis. No skin cancer. PHYSICAL EXAM: VITAL SIGNS: 5 foot 5, 195 pounds. Body mass index of 32.5. Vital Signs 03/25/17 13:36 Temperature 99.0 F Pulse Rate 86 Respiratory 16 Rate Blood Pressure 133/82 ABDOMEN: Soft, nontender, nondistended. No signs of cellulitis. GENERAL: Well-developed, pleasant female in no acute distress. HEENT: No sclerae icterus. Extraocular movements grossly intact. Moist buccal mucosa. NECK: Supple without lymphadenopathy. CHEST: Nonlabored respirations. Equal bilateral excursions. CARDIOVASCULAR: Regular rate and rhythm. 2+ bilateral pitting edema. MUSCULOSKELETAL: No clubbing, cyanosis, or edema. PSYCH: Appropriate affect. Alert and oriented to person, place, and time. NEURO: No focal or lateralizing signs. Cranial nerves II through XII grossly within normal limits. SKIN: Well perfused. Good skin turgor. LABS: Elevated Selenium. Laboratory Last Values WBC 9.9 k/uL (3.8-10.6) 03/25/17 14:55 RBC 4.79 m/uL (3.80-5.40) 03/25/17 14:55 Hgb 14.3 gm/dL (11.4-16.0) 03/25/17 14:55 Hct 43.6 % (34.0-46.0) 03/25/17 14:55 MCV 91.0 fL (80.0-100.0) 03/25/17 14:55 MCH 29.9 pg (25.0-35.0) 03/25/17 14:55 MCHC 32.9 g/dL (31.0-37.0) 03/25/17 14:55 RDW 14.3 % (11.5-15.5) 03/25/17 14:55 Plt Count 335 k/uL (150-450) 03/25/17 14:55 PT 10.4 sec (9.0-12.0) 03/25/17 14:55 INR 1.0 (<1.2) 03/25/17 14:55 APTT 27.9 sec (22.0-30.0) 03/25/17 14:55 Sodium 141 mmol/L (137-145) 03/25/17 14:55 Potassium 4.4 mmol/L (3.5-5.1) 03/25/17 14:55 Chloride 103 mmol/L (98-107) 03/25/17 14:55 Carbon Dioxide 28 mmol/L (22-30) 03/25/17 14:55 Anion Gap 10 mmol/L 03/25/17 14:55 BUN 12 mg/dL (7-17) 03/25/17 14:55 Creatinine 0.70 mg/dL (0.52-1.04) 03/25/17 14:55 Est GFR (MDRD) Af Amer >60 (>60 ml/min/1.73 sqM) 03/25/17 14:55 Est GFR (MDRD) Non-Af >60 (>60 ml/min/1.73 sqM) 03/25/17 14:55 Glucose 87 mg/dL (74-99) 03/25/17 14:[address] Glu mg/dL 114 mg/dL 03/25/17 14:55 Hemoglobin A1c 5.6 % (4.2-6.1) 03/25/17 14:55 Calcium 9.7 mg/dL (8.4-10.2) 03/25/17 14:55 Phosphorus 3.6 mg/dL (2.5-4.5) 03/25/17 14:55 Magnesium 2.3 mg/dL (1.6-2.3) 03/25/17 14:55 Iron 88 ug/dL (37-170) 03/25/17 14:55 TIBC 297 ug/dL (265-497) 03/25/17 14:55 % Saturation 29.6 % (20-50) 03/25/17 14:55 Ferritin 64 ng/mL (6-137) 03/25/17 14:55 Total Bilirubin 0.4 mg/dL (0.2-1.3) 03/25/17 14:55 AST 38 U/L (14-36) H 03/25/17 14:55 ALT 44 U/L (9-52) 03/25/17 14:55 Alkaline Phosphatase 76 U/L (38-126) 03/25/17 14:55 Total Protein 7.0 g/dL (6.3-8.2) 03/25/17 14:55 Albumin 4.4 g/dL (3.5-5.0) 03/25/17 14:55 Prealbumin 23 mg/dL (18-36) 03/25/17 14:55 Triglycerides 183 mg/dL (<150) H 03/25/17 14:55 Cholesterol 171 mg/dL (<200) 03/25/17 14:55 LDL Cholesterol, Calc 97 mg/dL (0-99) 03/25/17 14:55 HDL Cholesterol 37 mg/dL (40-60) L 03/25/17 14:55 Vitamin A 56 ug/dL (38-106) 03/25/17 14:55 Vitamin B1 74 ug/L (38-122) 03/25/17 14:55 Vitamin B12 >1000 pg/mL (239-931) H 03/25/17 14:55 Vitamin D 25-Hydroxy 65.8 ng/mL (30.0-100.0) 03/25/17 14:55 Folate >20.00 ng/mL (>2.75) 03/25/17 14:55 TSH 0.852 mIU/L (0.465-4.680) 03/25/17 14:55 PTH Intact 35.6 pg/mL (14.0-72.0) 03/25/17 14:55 Copper 1386 ug/L (810-1990) 03/25/17 14:55 Selenium 170 mcg/L (63-160) H 03/25/17 14:55 Zinc 74 ug/dL (60-130) 03/25/17 14:55 ASSESSMENT: 1. Morbid obesity due to excess calories. 2. Body mass index reduced from 41.7 down to 32.5. 3. Status post gastric bypass. 4. Obstructive sleep apnea, now resolved. 5. Osteoarthritis of bilateral hips, improved. 6. Osteoarthritis of lower back. 7. Osteoarthritis of bilateral knees. 8. Hypertensive heart disease, improved. 9. Gastroesophageal reflux disease, resolved. 10. Hypertriglyceridemia, improved. 11. Hypercholesterolemia, improved. 12. Macromastia. PLAN: 1. Recommendation metabolic panel. 2. She has discontinued her hypertensive medications. 3. Recommend adjustment of multivitamin as she has elevated selenium level. 4. May benefit from evaluation for breast reduction. 5. May discontinue omeprazole.
== END | disposition home or self-care (01) ==
LOC: BARWHC3 13:23
PROVIDERS: ATTEND Surgery Plastic and Reconstructive Surgery
DX: E66.01 Morbid (severe) obesity due to excess calories (principal); M47.816 Spondylosis without myelopathy or radiculopathy, lumbar region; M17.0 Bilateral primary osteoarthritis of knee; N62 Hypertrophy of breast; D50.9 Iron deficiency anemia, unspecified; E55.9 Vitamin D deficiency, unspecified; N19 Unspecified kidney failure; K50.90 Crohn's disease, unspecified, without complications; F32.9 Major depressive disorder, single episode, unspecified; F41.9 Anxiety disorder, unspecified; E78.5 Hyperlipidemia, unspecified; K21.9 Gastro-esophageal reflux disease without esophagitis; F41.0 Panic disorder [episodic paroxysmal anxiety]; Z68.32 Body mass index [BMI] 32.0-32.9, adult; Z98.84 Bariatric surgery status; Z79.899 Other long term (current) drug therapy
CPT/HCPCS: 36415; 80053; 80061; 82306; 82525; 82607; 82728; 82746; 83036; 83540; 83550; 83735; 83970; 84100; 84134; 84255; 84425; 84443; 84590; 84630; 85027; 85610; 85730; 97803; 99211

== ENCOUNTER → 2017-04-09 | Outpatient (CLI) | payer BC ==
[2017-04-09 10:52] VITALS: BP 127/85; PULSE 65; RESP 20; TEMP 98.2; BMI 32.0
--- NOTE | 2017-04-09 11:39 | P.PN ---
Progress Note - Text To whom it may concern: Alice Martinez is under my surgical care. She will be off work and may return on April 13. Regards, Margo Frye MD
== END | disposition home or self-care (01) ==
LOC: BARWHC3 10:00
PROVIDERS: ATTEND Surgery Plastic and Reconstructive Surgery
DX: Z48.815 Encounter for surgical aftercare following surgery on the digestive system (principal); Z98.84 Bariatric surgery status
CPT/HCPCS: 99212

== ENCOUNTER → 2017-07-01 | Outpatient (CLI) | payer BC ==
[2017-07-01 13:38] VITALS: BP 152/100; PULSE 74; RESP 16; TEMP 98.9; BMI 30.1
[2017-07-01 16:25] LABS: HCT 41.3 % (34.0-46.0); MCH 28.8 pg (25.0-35.0); MCHC 31.5 g/dL (31.0-37.0); MCV 91.4 fL (80.0-100.0); Mean Platelet Volume 7.1; Platelet Count 344 k/uL (150-450); RBC 4.51 m/uL (3.80-5.40); RDW 13.9 % (11.5-15.5); WBC 12.3 k/uL (3.8-10.6)
[2017-07-01 16:36] LABS: Partial Thromboplastin Time 28.3 sec (22.0-30.0); Prothrombin Time 10.2 sec (9.0-12.0)
[2017-07-01 16:56] LABS: ALT 36 U/L (9-52); AST 32 U/L (14-36); Albumin 4.9 g/dL (3.5-5.0); Alkaline Phosphatase 63 U/L (38-126); Anion Gap 11 mmol/L; Blood Urea Nitrogen 18 mg/dL (7-17); Calcium 10.3 mg/dL (8.4-10.2); Carbon Dioxide 29 mmol/L (22-30); Chloride 103 mmol/L (98-107); Cholesterol 205 mg/dL (<200); Glucose 62 mg/dL (74-99); HDL Cholesterol 50 mg/dL (40-60); LDL Cholesterol,Calculated 113 mg/dL (0-99); Magnesium 2.2 mg/dL (1.6-2.3); Phosphorus 4.1 mg/dL (2.5-4.5); Potassium 4.1 mmol/L (3.5-5.1); Sodium 143 mmol/L (137-145); Total Bilirubin 0.3 mg/dL (0.2-1.3); Total Protein 8.2 g/dL (6.3-8.2); Triglycerides 209 mg/dL (<150)
[2017-07-02 01:18] LABS: Iron Saturation 15.2 (12.00-45.00)
[2017-07-02 01:42] LABS: Folate, Serum 17.1 ng/mL
[2017-07-02 02:04] LABS: Parathyroid Hormone Intact 35.6 pg/mL (14.0-72.0)
[2017-07-02 04:31] LABS: Hemoglobin A1C 5.6 % (4.0-6.0)
[2017-07-02 13:33] LABS: Zinc, Serum 64 ug/dL (60-130)
[2017-07-03 07:14] LABS: Vitamin B1 84 ug/L (38-122)
[2017-07-03 09:12] LABS: Vitamin A 51 ug/dL (38-106)
[2017-07-03 19:07] LABS: Selenium 142 mcg/L (63-160)
--- NOTE | 2017-08-24 18:50 | P.PN ---
Progress Note - Text Progress Note Date: 07/01/17 DATE OF SERVICE: 07/01/2017 CHIEF COMPLAINT: Follow gastric bypass. HISTORY OF PRESENT ILLNESS: Alice Martinez is a 42-year-old female who is status post gastric bypass on 12/19/2016. She is a 6 months postop. Her initial weight was 250 pounds. Her ideal body weight for her 5 foot 5 frame is 149 pounds. Today she comes in weighing 181 pounds. She has lost another 11 pounds in 3 months. Lifetime weight loss is 69 pounds. Percent excess weight loss is 69 %. Body mass index is reduced from 41.7 down to 30.2. Today she complains of headaches which are affecting her neck including back. She reports her hair is falling out. She has increased her dose of Elavil. She recently had Lasik procedure in her eyes to obtain 20/20 vision. She also had placement of a TENS unit for chronic pain. Now she presents for her 6 month follow-up. PAST MEDICAL HISTORY: 1. Hypertension. 2. Sleep apnea. 3. Depression. 4. Gastroesophageal reflux disease. 5. Hyperlipidemia. 6. Generalized fatigue. 7. Urinary incontinence. 8. Panniculitis. 9. Anxiety. 10. Depression. 11. Panic disorder. PAST SURGICAL HISTORY: 1. . 2. Endometrial procedure. 3. Bladder sling. 4. Tubal ligation. 5. Uterine ablation. 6. Upper endoscopy. 7. Status post gastric bypass. 8. TENS placement 9. LASIK eye surgery. MEDICATIONS: 1. Effexor. 2. Restoril. 3. Omeprazole. 4. Elavil. ALLERGIES: Denies. SOCIAL HISTORY: Former tobacco use. FAMILY HISTORY: Pertinent for morbid obesity. Also has diabetes in her family as well as bipolar disorder, migraines and uterine cancer. REVIEW OF SYSTEMS: CONSTITUTIONAL: Her initial weight was 250 pounds. Her ideal body weight for her 5 foot 5 frame is 149 pounds. Today she comes in weighing 181 pounds. She has lost another 11 pounds in 3 months. Lifetime weight loss is 69 pounds. Percent excess weight loss is 69 %. Body mass index is reduced from 41.7 down to 30.2. HEENT: Denies any troubles with dysphagia. No reports with troubles with hearing or nosebleeds. Has trouble with vision, now recent LASIK. ENDOCRINE: No reports of known thyroid disorders or blood sugar glucose intolerance. GASTROINTESTINAL: Reports gastroesophageal reflux disease now resolved. Denies any diarrhea. RESPIRATORY: Has obstructive sleep apnea, now resolved. No recent pneumonia. MUSCULOSKELETAL: Has diffuse osteoarthritis including of the lower back and hips and knees, now improved. PSYCH: History of depression, including panic disorder and anxiety. Has chronic pain syndrome. NEURO: No history of stroke or seizure disorder. History of migraine headaches. HEMATOLOGIC: No reports of bleeding. Reports easy bruising. SKIN: Has panniculitis. No skin cancer. PHYSICAL EXAM: VITAL SIGNS: 5 foot 5, 181 pounds. Body mass index of 30.2. Vital Signs Temp 98.9 F 07/01/17 13:36 Pulse 74 07/01/17 13:36 Resp 16 07/01/17 13:36 BP 152/100 07/01/17 13:36 Pulse Ox ABDOMEN: Soft, nontender, nondistended. No palpable incisional hernias. GENERAL: Well-developed, pleasant female in no acute distress. HEENT: No sclerae icterus. Extraocular movements grossly intact. Moist buccal mucosa. NECK: Supple without lymphadenopathy. CHEST: Nonlabored respirations. Equal bilateral excursions. CARDIOVASCULAR: Regular rate and rhythm. 2+ bilateral pitting edema. MUSCULOSKELETAL: No clubbing, cyanosis, or edema. PSYCH: Appropriate affect. Alert and oriented to person, place, and time. NEURO: No focal or lateralizing signs. Cranial nerves II through XII grossly within normal limits. SKIN: Well perfused. Good skin turgor. LABS: Elevated WBC, calcium, cholesterol and triglycerides. Laboratory Last Values WBC 12.3 k/uL (3.8-10.6) H 07/01/17 15:13 RBC 4.51 m/uL (3.80-5.40) 07/01/17 15:13 Hgb 13.0 gm/dL (11.4-16.0) 07/01/17 15:13 Hct 41.3 % (34.0-46.0) 07/01/17 15:13 MCV 91.4 fL (80.0-100.0) 07/01/17 15:13 MCH 28.8 pg (25.0-35.0) 07/01/17 15:13 MCHC 31.5 g/dL (31.0-37.0) 07/01/17 15:13 RDW 13.9 % (11.5-15.5) 07/01/17 15:13 Plt Count 344 k/uL (150-450) 07/01/17 15:13 PT 10.2 sec (9.0-12.0) 07/01/17 15:13 INR 1.0 (<1.2) 07/01/17 15:13 APTT 28.3 sec (22.0-30.0) 07/01/17 15:13 Sodium 143 mmol/L (137-145) 07/01/17 15:13 Potassium 4.1 mmol/L (3.5-5.1) 07/01/17 15:13 Chloride 103 mmol/L (98-107) 07/01/17 15:13 Carbon Dioxide 29 mmol/L (22-30) 07/01/17 15:13 Anion Gap 11 mmol/L 07/01/17 15:13 BUN 18 mg/dL (7-17) H 07/01/17 15:13 Creatinine 0.70 mg/dL (0.52-1.04) 07/01/17 15:13 Est GFR (MDRD) Af Amer >60 (>60 ml/min/1.73 sqM) 07/01/17 15:13 Est GFR (MDRD) Non-Af >60 (>60 ml/min/1.73 sqM) 07/01/17 15:13 Glucose 62 mg/dL (74-99) L 07/01/17 15:[address] Glu mg/dL 114 07/01/17 15:13 Hemoglobin A1c 5.6 % (4.0-6.0) 07/01/17 15:13 Calcium 10.3 mg/dL (8.4-10.2) H 07/01/17 15:13 Phosphorus 4.1 mg/dL (2.5-4.5) 07/01/17 15:13 Magnesium 2.2 mg/dL (1.6-2.3) 07/01/17 15:13 Iron 50 ug/dL (50-170) 07/01/17 15:13 TIBC 329 ug/dL (228-460) 07/01/17 15:13 Iron Saturation 15.20 (12.00-45.00) 07/01/17 15:13 Ferritin 61.1 ng/mL (10.0-291.0) 07/01/17 15:13 Total Bilirubin 0.3 mg/dL (0.2-1.3) 07/01/17 15:13 AST 32 U/L (14-36) 07/01/17 15:13 ALT 36 U/L (9-52) 07/01/17 15:13 Alkaline Phosphatase 63 U/L (38-126) 07/01/17 15:13 Total Protein 8.2 g/dL (6.3-8.2) 07/01/17 15:13 Albumin 4.9 g/dL (3.5-5.0) 07/01/17 15:13 Prealbumin 27.0 mg/dL (18.0-42.0) 07/01/17 15:13 Triglycerides 209 mg/dL (<150) H 07/01/17 15:13 Cholesterol 205 mg/dL (<200) H 07/01/17 15:13 LDL Cholesterol, Calc 113 mg/dL (0-99) H 07/01/17 15:13 HDL Cholesterol 50 mg/dL (40-60) 07/01/17 15:13 Vitamin A 51 ug/dL (38-106) 07/01/17 15:13 Vitamin B1 84 ug/L (38-122) 07/01/17 15:13 Vitamin B12 1400.0 pg/mL (200.0-944.0) H 07/01/17 15:13 Vitamin D 25-Hydroxy 75.0 ng/mL (30.0-100.0) 07/01/17 15:13 Folate 17.1 ng/mL 07/01/17 15:13 TSH 1.220 mIU/L (0.465-4.680) 07/01/17 15:13 PTH Intact 35.6 pg/mL (14.0-72.0) 07/01/17 15:13 Copper 1389 ug/L (810-1990) 07/01/17 15:13 Selenium 142 mcg/L (63-160) 07/01/17 15:13 Zinc 64 ug/dL (60-130) 07/01/17 15:13 ASSESSMENT: 1. Morbid obesity due to excess calories. 2. Body mass index reduced from 41.7 down to 30.2. 3. Status post gastric bypass. 4. Obstructive sleep apnea, now resolved. 5. Osteoarthritis of bilateral hips, improved. 6. Osteoarthritis of lower back. 7. Osteoarthritis of bilateral knees. 8. Hypertensive heart disease, improved. 9. Gastroesophageal reflux disease, resolved. 10. Hypertriglyceridemia, improved. 11. Hypercholesterolemia, improved. 12. Macromastia. 13. Chronic pain syndrome. 14. Hair loss. PLAN: 1. Recommend that she metabolic panel to evaluate reasons for hair loss. 2. She has moderate hypertension. Recommend biofeedback and potential blood pressure medications. Recommend follow-up with primary care provider. 3. Recommend follow-up 9 months post procedure, October 2016.
== END ==
LOC: BARWHC3 13:11
PROVIDERS: ATTEND Surgery Plastic and Reconstructive Surgery
DX: Z09 Encounter for follow-up examination after completed treatment for conditions other than malignant neoplasm (principal); E66.01 Morbid (severe) obesity due to excess calories; M16.0 Bilateral primary osteoarthritis of hip; M47.816 Spondylosis without myelopathy or radiculopathy, lumbar region; M17.0 Bilateral primary osteoarthritis of knee; I11.9 Hypertensive heart disease without heart failure; E78.1 Pure hyperglyceridemia; E78.00 Pure hypercholesterolemia, unspecified; N62 Hypertrophy of breast; G89.4 Chronic pain syndrome; L65.9 Nonscarring hair loss, unspecified; E89.1 Postprocedural hypoinsulinemia; D50.9 Iron deficiency anemia, unspecified; K90.9 Intestinal malabsorption, unspecified; E55.9 Vitamin D deficiency, unspecified; K76.9 Liver disease, unspecified; N19 Unspecified kidney failure; K50.90 Crohn's disease, unspecified, without complications; K21.9 Gastro-esophageal reflux disease without esophagitis; F32.9 Major depressive disorder, single episode, unspecified; Z68.30 Body mass index [BMI] 30.0-30.9, adult; Z79.899 Other long term (current) drug therapy; Z87.891 Personal history of nicotine dependence; Z98.84 Bariatric surgery status
CPT/HCPCS: 36415; 80053; 80061; 82306; 82525; 82607; 82728; 82746; 83036; 83540; 83550; 83735; 83970; 84100; 84134; 84255; 84425; 84443; 84590; 84630; 85027; 85610; 85730; 97803; 99211

== ENCOUNTER → 2017-09-25 | Outpatient (CLI) | payer BC ==
--- NOTE | 2017-09-25 13:58 | MR ---
EXAMINATION TYPE: MR cervical spine wo con DATE OF EXAM: 09/25/2017 COMPARISON: NONE HISTORY: Cervicalgia With Radiculopathy, Neck and shoulder pain TECHNIQUE: Multiplanar, multisequence images of the cervical spine were acquired. C2-C3: No evidence for degenerative disc disease. No disc bulge/herniation or protrusion. No Canal stenosis. Foramina are patent bilaterally. C3-C4: No evidence for degenerative disc disease. No disc bulge/herniation or protrusion. No Canal stenosis. Foramina are patent bilaterally. C4-C5: Left posterior paracentral disc herniation causes anterolateral mass effect on the thecal sac, there is left-sided foraminal encroachment due to lateral extension of the disc herniation. No signi ficant central stenosis. C5-C6: Broad-based posterior disc bulge is present causing anterior mass effect on the thecal sac. On ly mild central stenosis. Lateral extension of endplate disc complex causes some mild foraminal encro achment right greater than left. C6-C7: There is a left posterior paracentral disc herniation which may contact the anterior cervical cord. Moderate central canal stenosis. Lateral extension of endplate disc complex causes some foramin al encroachment left greater than right. C7-T1: No evidence for degenerative disc disease. No disc bulge/herniation or protrusion. No Canal stenosis. Foramina are patent bilaterally. Cervical segments are intact. There is normal alignment. Cervical spinal cord is of normal signal. Craniovertebral junction relationships are within normal limits. There is multilevel spondylosis. S ome loss of disc height and signal present at the intervertebral levels C2-3, C3-4, C4-5 and C5-6, C6 -7. 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 IMPRESSION: Disc herniations, multilevel degenerative disc disease as described, foraminal encroachment.
== END | disposition home or self-care (01) ==
LOC: RADMRIMAIN 10:30
PROVIDERS: ATTEND Family Medicine
DX: M50.121 Cervical disc disorder at C4-C5 level with radiculopathy (principal)
CPT/HCPCS: 72141

== ENCOUNTER → 2017-09-30 | Outpatient (CLI) | payer BC ==
[2017-09-30 13:27] VITALS: BMI 27.1
[2017-09-30 13:56] VITALS: BP 133/73; PULSE 62; RESP 15; TEMP 98.4
[2017-09-30 14:53] LABS: HCT 44.3 % (34.0-46.0); HGB 14.1 gm/dL (11.4-16.0); MCH 29.3 pg (25.0-35.0); MCHC 31.9 g/dL (31.0-37.0); MCV 91.7 fL (80.0-100.0); Mean Platelet Volume 6.3; Platelet Count 353 k/uL (150-450); RBC 4.83 m/uL (3.80-5.40); RDW 12.7 % (11.5-15.5)
[2017-09-30 15:01] LABS: Partial Thromboplastin Time 25.3 sec (22.0-30.0); Prothrombin Time 9.8 sec (9.0-12.0)
[2017-09-30 15:04] LABS: ALT 27 U/L (9-52); AST 24 U/L (14-36); Albumin 4.7 g/dL (3.5-5.0); Alkaline Phosphatase 52 U/L (38-126); Anion Gap 13 mmol/L; Blood Urea Nitrogen 11 mg/dL (7-17); Calcium 10.5 mg/dL (8.4-10.2); Carbon Dioxide 32 mmol/L (22-30); Chloride 103 mmol/L (98-107); Cholesterol 176 mg/dL (<200); Glucose 93 mg/dL (74-99); HDL Cholesterol 48 mg/dL (40-60); LDL Cholesterol,Calculated 102 mg/dL (0-99); Potassium 4.4 mmol/L (3.5-5.1); Sodium 148 mmol/L (137-145); Total Bilirubin 0.2 mg/dL (0.2-1.3); Total Protein 7.6 g/dL (6.3-8.2); Triglycerides 128 mg/dL (<150)
[2017-09-30 18:45] LABS: Iron Saturation 23.4 (12.00-45.00)
[2017-09-30 18:55] LABS: Vitamin D 25 Hydroxy 91.8 ng/mL (30.0-100.0)
[2017-09-30 18:56] LABS: Folate, Serum 17.9 ng/mL
[2017-09-30 20:47] LABS: Hemoglobin A1C 5.4 % (4.0-6.0)
[2017-10-02 00:58] LABS: Zinc, Serum 81 ug/dL (60-130)
[2017-10-02 08:30] LABS: Vitamin A 57 ug/dL (38-106)
[2017-10-03 03:03] LABS: Vitamin B1 90 ug/L (38-122)
[2017-10-03 11:37] LABS: Selenium 188 mcg/L (63-160)
--- NOTE | 2017-11-01 12:19 | P.PN ---
Subjective Progress Note Date: 09/30/17 DATE OF SERVICE: 09/30/2017 CHIEF COMPLAINT: Follow gastric bypass. HISTORY OF PRESENT ILLNESS: Alice Martinez is a 42-year-old female who is status post gastric bypass on 12/19/2016. She is a 10 months postop. Her initial weight was 250 pounds. Her ideal body weight for her 5 foot 5 frame is 149 pounds. Today she comes in weighing 163 pounds. She has lost another 18 pounds in 3 months. Lifetime weight loss is 87 pounds. Percent excess weight loss is 86 %. Body mass index is reduced from 41.7 down to 27.2. He comes in with reports of chronic panniculitis. She is using Nystatin powder. She reports also having panniculitis of the thighs including breast. Separately, she reports chronic pain of her neck and shoulder. No reports of heart burn. She has constipation. PAST MEDICAL HISTORY: 1. Hypertension. 2. Sleep apnea. 3. Depression. 4. Gastroesophageal reflux disease. 5. Hyperlipidemia. 6. Generalized fatigue. 7. Urinary incontinence. 8. Panniculitis. 9. Anxiety. 10. Depression. 11. Panic disorder. PAST SURGICAL HISTORY: 1. . 2. Endometrial procedure. 3. Bladder sling. 4. Tubal ligation. 5. Uterine ablation. 6. Upper endoscopy. 7. Status post gastric bypass. 8. TENS placement 9. LASIK eye surgery. MEDICATIONS: 1. Effexor. 2. Restoril. 3. Omeprazole. 4. Elavil. ALLERGIES: Denies. SOCIAL HISTORY: Former tobacco use. FAMILY HISTORY: Pertinent for morbid obesity. Also has diabetes in her family as well as bipolar disorder, migraines and uterine cancer. REVIEW OF SYSTEMS: CONSTITUTIONAL: Her initial weight was 250 pounds. Her ideal body weight for her 5 foot 5 frame is 149 pounds. Today she comes in weighing 163 pounds. She has lost another 18 pounds in 3 months. Lifetime weight loss is 87 pounds. Percent excess weight loss is 86 %. Body mass index is reduced from 41.7 down to 27.2. HEENT: Denies any troubles with dysphagia. No reports with troubles with hearing or nosebleeds. No troubles with vision. ENDOCRINE: No reports of known thyroid disorders or blood sugar glucose intolerance. GASTROINTESTINAL: Reports gastroesophageal reflux disease now resolved. Denies any diarrhea. RESPIRATORY: Has obstructive sleep apnea, now resolved. No recent pneumonia. MUSCULOSKELETAL: Has diffuse osteoarthritis including of the lower back and hips and knees, now improved. PSYCH: History of depression, including panic disorder and anxiety. Has chronic pain syndrome. NEURO: No history of stroke or seizure disorder. History of migraine headaches. HEMATOLOGIC: No reports of bleeding. Reports easy bruising. SKIN: Has panniculitis. No skin cancer. Reports panniculitis of the armpits, breast, abdomen and thighs. PHYSICAL EXAM: VITAL SIGNS: 5 foot 5, 163 pounds. Body mass index of 27.2. Vital Signs Temp 98.4 F 09/30/17 13:08 Pulse 62 09/30/17 13:08 Resp 15 09/30/17 13:08 BP 133/73 09/30/17 13:08 Pulse Ox ABDOMEN: Soft, nontender, nondistended. No palpable incisional hernias of her bariatric sites. Pannus of 5 pounds. Extension over pubis 4 cm with hyperemia consistent with panniculitis. GENERAL: Well-developed, pleasant female in no acute distress. HEENT: No sclerae icterus. Extraocular movements grossly intact. Moist buccal mucosa. NECK: Supple without lymphadenopathy. CHEST: Nonlabored respirations. Equal bilateral excursions. CARDIOVASCULAR: Regular rate and rhythm. 2+ bilateral pitting edema. MUSCULOSKELETAL: No clubbing, cyanosis, or edema. PSYCH: Appropriate affect. Alert and oriented to person, place, and time. NEURO: No focal or lateralizing signs. Cranial nerves II through XII grossly within normal limits. SKIN: Well perfused. Good skin turgor. LABS: Pending ASSESSMENT: 1. Morbid obesity due to excess calories. 2. Body mass index reduced from 41.7 down to 27.2. 3. Status post gastric bypass. 4. Obstructive sleep apnea, now resolved. 5. Osteoarthritis of bilateral hips, improved. 6. Osteoarthritis of lower back. 7. Osteoarthritis of bilateral knees. 8. Hypertensive heart disease, improved. 9. Gastroesophageal reflux disease, resolved. 10. Hypertriglyceridemia, improved. 11. Hypercholesterolemia, improved. 12. Macromastia. 13. Chronic pain syndrome. 14. Panniculitis 15. Hair loss PLAN: 1. Recommend bariatric metabolic panel 2. For her concerns of panniculitis involving the arms, thighs and abdomen, recommendation for board-certified plastic surgery was addressed. 3. Continue with nystatin powder. 4. Follow-up with bariatric Center 1 year anniversary, November 2017. 5. Review of labs, recommend decrease selenium for history of hair loss. Laboratory Last Values WBC 8.0 k/uL (3.8-10.6) 09/30/17 14:17 RBC 4.83 m/uL (3.80-5.40) 09/30/17 14:17 Hgb 14.1 gm/dL (11.4-16.0) 09/30/17 14:17 Hct 44.3 % (34.0-46.0) 09/30/17 14:17 MCV 91.7 fL (80.0-100.0) 09/30/17 14:17 MCH 29.3 pg (25.0-35.0) 09/30/17 14:17 MCHC 31.9 g/dL (31.0-37.0) 09/30/17 14:17 RDW 12.7 % (11.5-15.5) 09/30/17 14:17 Plt Count 353 k/uL (150-450) 09/30/17 14:17 PT 9.8 sec (9.0-12.0) 09/30/17 14:17 INR 1.0 (<1.2) 09/30/17 14:17 APTT 25.3 sec (22.0-30.0) 09/30/17 14:17 Sodium 148 mmol/L (137-145) H 09/30/17 14:17 Potassium 4.4 mmol/L (3.5-5.1) 09/30/17 14:17 Chloride 103 mmol/L (98-107) 09/30/17 14:17 Carbon Dioxide 32 mmol/L (22-30) H 09/30/17 14:17 Anion Gap 13 mmol/L 09/30/17 14:17 BUN 11 mg/dL (7-17) 09/30/17 14:17 Creatinine 0.70 mg/dL (0.52-1.04) 09/30/17 14:17 Est GFR (MDRD) Af Amer >60 (>60 ml/min/1.73 sqM) 09/30/17 14:17 Est GFR (MDRD) Non-Af >60 (>60 ml/min/1.73 sqM) 09/30/17 14:17 Glucose 93 mg/dL (74-99) 09/30/17 14:[address] Glu mg/dL 108 09/30/17 14:17 Hemoglobin A1c 5.4 % (4.0-6.0) 09/30/17 14:17 Calcium 10.5 mg/dL (8.4-10.2) H 09/30/17 14:17 Phosphorus 4.0 mg/dL (2.5-4.5) 09/30/17 14:17 Magnesium 2.0 mg/dL (1.6-2.3) 09/30/17 14:17 Iron 73 ug/dL (50-170) 09/30/17 14:17 TIBC 312 ug/dL (228-460) 09/30/17 14:17 Iron Saturation 23.40 (12.00-45.00) 09/30/17 14:17 Ferritin 90.0 ng/mL (10.0-291.0) 09/30/17 14:17 Total Bilirubin 0.2 mg/dL (0.2-1.3) 09/30/17 14:17 AST 24 U/L (14-36) 09/30/17 14:17 ALT 27 U/L (9-52) 09/30/17 14:17 Alkaline Phosphatase 52 U/L (38-126) 09/30/17 14:17 Total Protein 7.6 g/dL (6.3-8.2) 09/30/17 14:17 Albumin 4.7 g/dL (3.5-5.0) 09/30/17 14:17 Prealbumin 30.0 mg/dL (18.0-42.0) 09/30/17 14:17 Triglycerides 128 mg/dL (<150) 09/30/17 14:17 Cholesterol 176 mg/dL (<200) 09/30/17 14:17 LDL Cholesterol, Calc 102 mg/dL (0-99) H 09/30/17 14:17 HDL Cholesterol 48 mg/dL (40-60) 09/30/17 14:17 Vitamin A 57 ug/dL (38-106) 09/30/17 14:17 Vitamin B1 90 ug/L (38-122) 09/30/17 14:17 Vitamin B12 1889.0 pg/mL (200.0-944.0) H 09/30/17 14:17 Vitamin D 25-Hydroxy 91.8 ng/mL (30.0-100.0) 09/30/17 14:17 Folate 17.9 ng/mL 09/30/17 14:17 TSH 1.230 mIU/L (0.465-4.680) 09/30/17 14:17 PTH Intact 29.0 pg/mL (14.0-72.0) 09/30/17 14:17 Copper 1209 ug/L (810-1990) 09/30/17 14:17 Selenium 188 mcg/L (63-160) H 09/30/17 14:17 Zinc 81 ug/dL (60-130) 09/30/17 14:17 Calcium elevated. Selenium elevated. Objective - Vital Signs Vital signs: Intake & Output 09/29/17 09/30/17 09/30/17 18:59 06:59 18:59 Weight 74.162 kg - Labs CBC & Chem 7: 09/30/17 14:17 09/30/17 14:17
== END | disposition home or self-care (01) ==
LOC: BARWHC3 12:55
PROVIDERS: ATTEND Surgery Plastic and Reconstructive Surgery
DX: E66.01 Morbid (severe) obesity due to excess calories (principal); M16.0 Bilateral primary osteoarthritis of hip; M17.0 Bilateral primary osteoarthritis of knee; I11.0 Hypertensive heart disease with heart failure; E78.1 Pure hyperglyceridemia; E78.00 Pure hypercholesterolemia, unspecified; N62 Hypertrophy of breast; G89.4 Chronic pain syndrome; M79.3 Panniculitis, unspecified; L65.9 Nonscarring hair loss, unspecified; Z71.3 Dietary counseling and surveillance; E21.1 Secondary hyperparathyroidism, not elsewhere classified; E89.1 Postprocedural hypoinsulinemia; D50.9 Iron deficiency anemia, unspecified; K90.0 Celiac disease; K90.9 Intestinal malabsorption, unspecified; E44.0 Moderate protein-calorie malnutrition; E55.9 Vitamin D deficiency, unspecified; K74.1 Hepatic sclerosis; N19 Unspecified kidney failure; K50.90 Crohn's disease, unspecified, without complications; Z98.84 Bariatric surgery status; Z68.27 Body mass index [BMI] 27.0-27.9, adult; Z79.899 Other long term (current) drug therapy
CPT/HCPCS: 36415; 80053; 80061; 82306; 82525; 82607; 82728; 82746; 83036; 83540; 83550; 83735; 83970; 84100; 84134; 84255; 84425; 84443; 84590; 84630; 85027; 85610; 85730; 97803; 99211

== ENCOUNTER → 2018-02-03 | Outpatient (CLI) | payer BC ==
[2018-02-03 13:20] VITALS: BMI 24.3
[2018-02-03 13:36] VITALS: BP 107/72; PULSE 68; RESP 16; TEMP 98.2
--- NOTE | 2018-02-03 14:38 | P.PN ---
Subjective Progress Note Date: 02/03/18 HPI: She is very happy with her weight loss. She is a newlywed. She has lost over 100 pounds. She reports severe panniculitis. Has chronic back pain exacerbated by her pannus. ABDOMEN: Has active panniculitis involving the umbilicus. Pannus weight of 5 pound. PLAN: 1. Panniculectomy information reviewed. 2. Nystatin powder to be prescribed. 3. Return once weight is stable. Objective - Vital Signs Vital signs: Vital Signs Temp 98.2 F 02/03/18 13:33 Pulse 68 02/03/18 13:33 Resp 16 02/03/18 13:33 BP 107/72 02/03/18 13:33 Pulse Ox Intake & Output 02/02/18 02/03/18 02/03/18 18:59 06:59 18:59 Weight 66.224 kg
[2018-02-03 15:55] LABS: HGB 13.7 gm/dL (11.4-16.0); MCH 29.2 pg (25.0-35.0); MCHC 32.6 g/dL (31.0-37.0); MCV 89.6 fL (80.0-100.0); Mean Platelet Volume 6.4; Platelet Count 338 k/uL (150-450); RBC 4.69 m/uL (3.80-5.40); RDW 13.2 % (11.5-15.5); WBC 11.3 k/uL (3.8-10.6)
[2018-02-03 16:15] LABS: Partial Thromboplastin Time 25.1 sec (22.0-30.0); Prothrombin Time 9.8 sec (9.0-12.0)
[2018-02-03 16:19] LABS: ALT 32 U/L (9-52); AST 26 U/L (14-36); Albumin 4.6 g/dL (3.5-5.0); Alkaline Phosphatase 44 U/L (38-126); Anion Gap 12 mmol/L; Blood Urea Nitrogen 16 mg/dL (7-17); Calcium 9.7 mg/dL (8.4-10.2); Carbon Dioxide 29 mmol/L (22-30); Chloride 100 mmol/L (98-107); Cholesterol 152 mg/dL (<200); Glucose 88 mg/dL (74-99); HDL Cholesterol 64 mg/dL (40-60); LDL Cholesterol,Calculated 69 mg/dL (0-99); Phosphorus 4.1 mg/dL (2.5-4.5); Sodium 141 mmol/L (137-145); Total Bilirubin 0.4 mg/dL (0.2-1.3); Total Protein 7.2 g/dL (6.3-8.2); Triglycerides 96 mg/dL (<150)
[2018-02-04 01:08] LABS: Parathyroid Hormone Intact 44.7 pg/mL (14.0-72.0)
[2018-02-04 01:25] LABS: Iron Saturation 22.09 (12.00-45.00)
[2018-02-04 01:34] LABS: Vitamin D 25 Hydroxy 68.7 ng/mL (30.0-100.0)
[2018-02-04 01:58] LABS: Folate, Serum >24.0 ng/mL
[2018-02-04 02:21] LABS: Hemoglobin A1C 5.2 % (4.0-6.0)
[2018-02-04 12:51] LABS: Zinc, Serum 60 ug/dL (60-130)
[2018-02-05 05:31] LABS: Vitamin A 59 ug/dL (38-106)
[2018-02-05 12:27] LABS: Vitamin B1 77 ug/L (38-122)
== END | disposition home or self-care (01) ==
LOC: BARWHC3 12:47
PROVIDERS: ATTEND Surgery Plastic and Reconstructive Surgery
DX: Z09 Encounter for follow-up examination after completed treatment for conditions other than malignant neoplasm (principal); M79.3 Panniculitis, unspecified; G89.29 Other chronic pain; M54.9 Dorsalgia, unspecified; E66.01 Morbid (severe) obesity due to excess calories; E65 Localized adiposity; E21.1 Secondary hyperparathyroidism, not elsewhere classified; D50.9 Iron deficiency anemia, unspecified; E44.0 Moderate protein-calorie malnutrition; E55.9 Vitamin D deficiency, unspecified; K74.1 Hepatic sclerosis; N19 Unspecified kidney failure; K50.90 Crohn's disease, unspecified, without complications
CPT/HCPCS: 80053; 80061; 82306; 82525; 82607; 82728; 82746; 83036; 83540; 83550; 83735; 83970; 84100; 84134; 84255; 84425; 84443; 84590; 84630; 85027; 85610; 85730; 97803; 99211

== ENCOUNTER → 2018-04-20 | Outpatient (CLI) | payer BC ==
[2018-04-20 16:26] LABS: Basophils % (A) 0 %; Eosinophils # (A) 0.1 k/uL (0-0.7); Eosinophils % (A) 1 %; HCT 40.9 % (34.0-46.0); HGB 13.3 gm/dL (11.4-16.0); Lymphocytes # (A) 2.5 k/uL (1.0-4.8); Lymphocytes % (A) 29 %; MCHC 32.5 g/dL (31.0-37.0); MCV 92.3 fL (80.0-100.0); Mean Platelet Volume 6.5; Monocytes # (A) 0.5 k/uL (0-1.0); Monocytes % (A) 6 %; Neutrophils # (A) 5.4 k/uL (1.3-7.7); Neutrophils % (A) 62 %; Platelet Count 283 k/uL (150-450); RBC 4.43 m/uL (3.80-5.40); RDW 12.8 % (11.5-15.5); WBC 8.6 k/uL (3.8-10.6)
[2018-04-20 16:33] LABS: ALT 32 U/L (9-52); AST 28 U/L (14-36); Albumin 4.6 g/dL (3.5-5.0); Alkaline Phosphatase 44 U/L (38-126); Anion Gap 11 mmol/L; Blood Urea Nitrogen 19 mg/dL (7-17); Carbon Dioxide 26 mmol/L (22-30); Chloride 104 mmol/L (98-107); Glucose 85 mg/dL (74-99); Potassium 4.4 mmol/L (3.5-5.1); Sodium 141 mmol/L (137-145); Total Bilirubin 0.4 mg/dL (0.2-1.3); Total Protein 7.2 g/dL (6.3-8.2)
== END | disposition home or self-care (01) ==
LOC: LABPAT 15:01
PROVIDERS: ATTEND Surgery Plastic and Reconstructive Surgery
DX: Z01.818 Encounter for other preprocedural examination (principal); Z01.812 Encounter for preprocedural laboratory examination
CPT/HCPCS: 36415; 80053; 85025; 93005

== ENCOUNTER 2018-05-03 12:45 | Observation (INO) | payer BC ==
[2018-04-22 11:46] VITALS: BMI 23.8
--- NOTE | 2018-05-02 20:01 | P.GSHP ---
History of Present Illness H&P Date: 05/03/18 DATE OF SERVICE: 05/03/2018 CHIEF COMPLAINT: Panniculitis. HISTORY OF PRESENT ILLNESS: Alice Martinez is a 42-year-old female who is status post gastric bypass on 12/19/2016. She is a 16+ months postop. Her initial weight was 250 pounds. Her ideal body weight for her 5 foot 5 frame is 149 pounds. Today she comes in weighing 143 pounds from 146 pounds, 2 months ago. She has lost another 3 pounds in 2 months. Lifetime weight loss is 107 pounds. Percent excess weight loss is 105 %. Body mass index is reduced from 41.7 down to 23.8. She reports severe panniculitis. She presents for panniculectomy. PAST MEDICAL HISTORY: 1. Hypertension. 2. Sleep apnea. 3. Depression. 4. Gastroesophageal reflux disease. 5. Hyperlipidemia. 6. Generalized fatigue. 7. Urinary incontinence. 8. Panniculitis. 9. Anxiety. 10. Depression. 11. Panic disorder. 12. Morbid obesity, BMI 41.7, initial PAST SURGICAL HISTORY: 1. . 2. Endometrial procedure. 3. Bladder sling. 4. Tubal ligation. 5. Uterine ablation. 6. Upper endoscopy. 7. Status post gastric bypass. 8. TENS placement 9. LASIK eye surgery. MEDICATIONS: 1. Effexor. 2. Restoril. 3. Omeprazole. 4. Elavil. ALLERGIES: Denies. SOCIAL HISTORY: Former tobacco use. FAMILY HISTORY: Pertinent for morbid obesity. Also has diabetes in her family as well as bipolar disorder, migraines and uterine cancer. REVIEW OF SYSTEMS: CONSTITUTIONAL: Her initial weight was 250 pounds. Her ideal body weight for her 5 foot 5 frame is 149 pounds. Today she comes in weighing 146 pounds. She has lost another 17 pounds in 4 months. Lifetime weight loss is 104 pounds. Percent excess weight loss is 103 %. Body mass index is reduced from 41.7 down to 24.2. HEENT: Denies any troubles with dysphagia. No reports with troubles with hearing or nosebleeds. No troubles with vision. ENDOCRINE: No reports of known thyroid disorders or blood sugar glucose intolerance. GASTROINTESTINAL: Reports gastroesophageal reflux disease now resolved. Denies any diarrhea. RESPIRATORY: Has obstructive sleep apnea, now resolved. No recent pneumonia. MUSCULOSKELETAL: Has diffuse osteoarthritis including of the lower back and hips and knees. PSYCH: History of depression, including panic disorder and anxiety. Has chronic pain syndrome. NEURO: No history of stroke or seizure disorder. History of migraine headaches. HEMATOLOGIC: No reports of bleeding. Reports easy bruising. SKIN: Has panniculitis. No skin cancer. Reports panniculitis of the armpits, breast, abdomen and thighs. PHYSICAL EXAM: VITAL SIGNS: 5 foot 5, 142 pounds. Body mass index of 23.8. ABDOMEN: Pannus of 5+ pounds with erythema along the pubis with panniculitis. Soft, nontender, nondistended. Has active panniculitis involving the umbilicus. GENERAL: Well-developed, pleasant female in no acute distress. HEENT: No sclerae icterus. Extraocular movements grossly intact. Moist buccal mucosa. NECK: Supple without lymphadenopathy. CHEST: Nonlabored respirations. Equal bilateral excursions. CARDIOVASCULAR: Regular rate and rhythm. 2+ bilateral pitting edema. MUSCULOSKELETAL: No clubbing, cyanosis, or edema. PSYCH: Appropriate affect. Alert and oriented to person, place, and time. NEURO: No focal or lateralizing signs. Cranial nerves II through XII grossly within normal limits. SKIN: Well perfused. Good skin turgor. ASSESSMENT: 1. Morbid obesity due to excess calories. 2. Body mass index reduced from 41.7 down to 23.8 3. Status post gastric bypass. 4. Obstructive sleep apnea, now resolved. 5. Osteoarthritis of bilateral hips, improved. 6. Osteoarthritis of lower back. 7. Osteoarthritis of bilateral knees. 8. Hypertensive heart disease, improved. 9. Gastroesophageal reflux disease, resolved. 10. Hypertriglyceridemia, improved. 11. Hypercholesterolemia, improved. 12. Macromastia. 13. Chronic pain syndrome. 14. Panniculitis PLAN: 1. Recommend panniculectomy for history of medical refractory panniculitis despite treatment including exacerbated lower back pain. 2. Benefits and risks of panniculectomy information were reviewed including infection, flap failure, seromas, chronic pain, and bleeding. Past Medical History Past Medical History: GERD/Reflux, Hyperlipidemia, Hypertension, Sleep Apnea/ CPAP/BIPAP Additional Past Medical History / Comment(s): MIGRAINE HEADACHES. Hx peptic ulcer. Current chronic neck and right shoulder pain. GERD, Hypertension, Hyperlipidemia and Sleep Apnea resolved since Bariatric Surgery 11/2016.([id number] ) Hx of Ileitis after Bariatric Surgery. History of Any Multi-Drug Resistant Organisms: None Reported Past Surgical History: Appendectomy, Bariatric Surgery, Bladder Surgery, Section, Tubal Ligation, Uterine Ablation Additional Past Surgical History / Comment(s): Laparscopic endometrial procedure , bladder sling. Past Anesthesia/Blood Transfusion Reactions: No Reported Reaction Additional Past Anesthesia/Blood Transfusion Reaction / Comment(s): no hx of transfusion as of 10/30/16 Past Psychological History: Anxiety Smoking Status: Former smoker Past Alcohol Use History: Rare Additional Past Alcohol Use History / Comment(s): STARTED SMOKING AT AGE 19 QUIT 04/2016 SMOKED LESS THAN 1/2 PPD Past Drug Use History: None Reported - Past Family History Mother Family Medical History: Cancer, Diabetes Mellitus Additional Family Medical History / Comment(s): Uterine cancer. Medications and Allergies Home Medications Medication Instructions Recorded Confirmed Type Temazepam [Restoril] 15 - 30 mg PO HS PRN 11/24/16 04/22/18 History Multivitamins, Thera [Multivitamin 1 tab PO DAILY 03/25/17 04/22/18 History (formulary)] Nystatin 100,000 Unit/gm Powd 1 applic TOPICAL BID #60 powder 03/25/17 04/22/18 Rx [Mycostatin Powder] Gabapentin 600 mg PO HS 04/09/17 04/22/18 History ALPRAZolam [Xanax] 0.25 mg PO Q8HR #30 tab 07/01/17 04/22/18 Rx Cyanocobalamin (Vitamin B-12) 5,000 mcg NASAL WEEKLY 07/01/17 04/22/18 History [Vitamin B12] Telford-3 Fatty Acids [Telford-3] 1,000 mg PO DAILY 07/01/17 04/22/18 History Methocarbamol [Robaxin] 1,000 mg PO TID 04/22/18 04/22/18 History Allergies Allergy/AdvReac Type Severity Reaction Status Date / Time albuterol AdvReac Rapid Verified 04/22/18 11:25 Heart Rate
[~2018-05-03 12:45] MED LIST changes: -ACETAMINOPHEN IV (For NPO) 1,000 MG in EMPTY BAG 1 BAG IVPB ONE; -CHLORHEXIDINE GLUCONATE 15 ML CUP MUCOUS MEM ONE; -ENOXAPARIN 40 MG/0.4 ML SYRINGE SQ STA; +HEPARIN SODIUM,PORCINE 5,000 UNIT/ML 1 ML VIAL SQ ONE; +HYDROmorphone 0.5 MG/0.5 ML SYRINGE IVP PRN; -PANTOPRAZOLE 40 MG/10 ML VIAL IV STA; -ceFAZolin 2 GM in SODIUM CHLORIDE 0.9% 100 ML IVPB ONE; +ceFAZolin IN SWFI 2 GM/20 ML SYRINGE IVP ONE
[2018-05-03] MEDS: LACTATED RINGERS 1,000 ML IV SCH ×2 (13:42→23:06)
[2018-05-03] MEDS ORDERED: DEXAMETHASONE SOD PHOSPHATE 10 MG/ML 1 ML VIAL IV ONE (13:51)
[2018-05-03] MEDS ORDERED: ONDANSETRON 4 MG/2 ML VIAL IVP ONE (13:51)
[2018-05-03] MEDS ORDERED: PROPOFOL 10 MG/ML 20 ML VIAL IV ONE (14:16)
[2018-05-03] MEDS ORDERED: SUCCINYLCHOLINE CHLORIDE 100 MG/5 ML SYR IV ONE (14:16)
[2018-05-03] MEDS ORDERED: fentaNYL (PF) 50 MCG/ML 2 ML AMP ONE (14:16)
[2018-05-03] MEDS ORDERED: MIDAZOLAM 2 MG/2 ML VIAL ONE (14:16)
[2018-05-03] MEDS ORDERED: ePHEDrine SULFATE/0.9% NACL/PF 50 MG/5 ML SYRINGE IV ONE (14:16)
[2018-05-03] MEDS ORDERED: LIDOCAINE 1% INJ 10MG/ML (20 ML MDV) ONE (14:16)
[2018-05-03] MEDS ORDERED: LACTATED RINGERS 1,000 ML IV ONE (15:17)
[2018-05-03] MEDS ORDERED: ONDANSETRON 4 MG/2 ML VIAL IVP PRN (16:26)
[2018-05-03] MEDS ORDERED: HYDROcodone/APAP 7.5-325MG 1 EACH TAB PO PRN (16:27)
[2018-05-03] MEDS ORDERED: MEPERIDINE 50 MG/ML SYRINGE IVP ONE ×2 (16:38→16:45)
--- NOTE | 2018-05-03 16:57 | P.OP ---
Date of Procedure: 05/03/18 Description of Procedure: SURGEON: PARVEEN TRIMBLE MD PREOPERATIVE DIAGNOSES: 1. Morbid obesity due to excess calories. 2. Body mass index reduced from 41.7 down to 23.8 3. Status post gastric bypass. 4. Obstructive sleep apnea, now resolved. 5. Osteoarthritis of bilateral hips, improved. 6. Osteoarthritis of lower back. 7. Osteoarthritis of bilateral knees. 8. Hypertensive heart disease, improved. 9. Gastroesophageal reflux disease, resolved. 10. Hypertriglyceridemia, improved. 11. Hypercholesterolemia, improved. 12. Macromastia. 13. Chronic pain syndrome. 14. Panniculitis POSTOPERATIVE DIAGNOSES: 1. Morbid obesity due to excess calories. 2. Body mass index reduced from 41.7 down to 23.8 3. Status post gastric bypass. 4. Obstructive sleep apnea, now resolved. 5. Osteoarthritis of bilateral hips, improved. 6. Osteoarthritis of lower back. 7. Osteoarthritis of bilateral knees. 8. Hypertensive heart disease, improved. 9. Gastroesophageal reflux disease, resolved. 10. Hypertriglyceridemia, improved. 11. Hypercholesterolemia, improved. 12. Macromastia. 13. Chronic pain syndrome. 14. Panniculitis OPERATION: 1. Panniculectomy, 2.7 pounds. 2. Primary repair of ventral hernia 9 x 23 cm without mesh. ANESTHESIA: General with local ESTIMATED BLOOD LOSS: 200 mL SPECIMENS REMOVED: Pannus 2.7 pounds. COMPLICATIONS: None. CONDITION: Stable. DRAINS: Two #19 Alexi drains below abdominal flap extending through the pubis. OPERATIVE FINDINGS: 1. Pannus weighing 2.7 pounds, excised. 2. Abdominal ventral hernia of 9 x 2cm along the midline repaired primarily using fascial imbrication. INDICATIONS: Alice Martinez is a 42-year-old female who is status post gastric bypass on 2016. She is a 16+ months postop. Her initial weight was 250 pounds. Her ideal body weight for her 5 foot 5 frame is 149 pounds. Today she comes in weighing 143 pounds from 146 pounds, 2 months ago. She has lost another 3 pounds in 2 months. Lifetime weight loss is 107 pounds. Percent excess weight loss is 105 % . Body mass index is reduced from 41.7 down to 23.8. She reports severe panniculitis. She presents for panniculectomy. Despite medical therapy with prescription powders such as Nystatin over 1 year, she has developed severe medical refractory panniculitis. Benefits and risks of the procedure including bleeding, infection, cosmetic deformity, abdominal seromas, placement of drains , risk of flap failure were described at length. Informed consent was obtained. DESCRIPTION: In the preanesthesia care unit the patient was marked with an indelible marker. She had also been given heparin subcutaneously. The patient was brought into the operating room and laid in supine position. After general induction, a Osei catheter was placed. The abdomen was then prepped and draped in standard sterile fashion using ChloraPrep. The skin was prepped as far laterally to the back, inferiorly to the upper thighs and superiorly to above the bilateral breasts. A timeout protocol was confirmed with the surgical team regarding patient's name , procedure to be performed, including preoperative medications. She had received Ancef 2 grams IV antibiotics. Once the time-out protocol was confirmed with the surgical team, the patient was re-marked with indelible marker whereby the midline of the xiphoid to the mons pubis was marked. The anterior/superior iliac spine along the bilateral hips was also marked. At 7 cm above the pubis commissure a transverse incision was made for the inferior portion of the flap. Using a #10 blade, the incision was taken from the midline laterally to above the anterior/superior iliac spine, initially on the left side of the patient and then on the right side of the patient. Electro-Bovie cautery was used to control for hemostasis. The dissection was taken down to the level of the fascia. Landmarks used were the xiphoid process as well as the bilateral costal margins for the superior margin. Care was taken to avoid any creation of dog ears during the dissection. Once hemostasis was checked, a large ventral hernia fascial defect of 9 x 23 cm was identified unrelated to her bariatric procedure. During this dissection, the umbilicus was truncated at its fascial insertion. Starting from the xiphoid process, fascial imbrication was performed using #2 Ethibond. Multiple facial imbrications at least 4 layers were performed. The ventral hernia defect was completely repaired and closed. Hemostasis was once again checked with electro-Bovie cautery and all defects were addressed. Attention was now brought to closure of the flap. Using stainless steel skin davin, the midline was once again marked of the upper flap as well as the pubic commissure. The patient was placed in a flexed position of approximately 30 degrees at the hips. The pannus was extended inferiorly to the feet. The upper flap was created once the excess skin was excised. Again care was taken to avoid any dog ears along the lateral aspect of the incisions. Once excised, the pannus was weighed at 10.68 pounds. The upper and lower flaps were reapproximated at the midline and then laterally to the skin with skin davin. Once reapproximated, the skin was closed in layers using 0 Vicryl for the superficial fascial system followed by running 3- 0 Monocryl for the deep dermis in a running subcuticular fashion. Prior to skin closure, two round #19 Alexi drains were placed underneath the flap and brought out just inferior to the incision along the pubis. Drain stitch using 2-0 nylon was placed. Once the incision was closed, bulb suction was attached. Hemostasis was checked. At the end of the procedure, the needle, sponge and instrument count was verified correct. The skin was cleansed with hydrogen peroxide. Dermabond tape including adhesive was placed along the length of the incision. Optifoam long silver dressing was also placed over the incision. Small optifoam dressing was placed over the JOSEPH sites. The patient was then transferred to a hospital bed in a beach chair position. An abdominal binder was placed and marked. The patient was taken to the postanesthesia care unit in stable condition, awake and extubated. Total time for procedure from skin to skin was 93 minutes. The intraoperative findings were discussed with her over the phone who was pleased with the level of care.
[2018-05-03] MEDS ORDERED: fentaNYL (PF) 50 MCG/ML 2 ML AMP IVP ONE ×2 (17:10→17:15)
[2018-05-03] MEDS: HYDROmorphone 1 MG/ML 1 ML SYRINGE IVP PRN ×2 (18:17→20:56)
[2018-05-03] MEDS ORDERED: GABAPENTIN 300 MG CAP PO SCH (21:00)
[2018-05-03] MEDS: ceFAZolin IN SWFI 2 GM/20 ML SYRINGE IVP SCH (22:13)
[2018-05-03] MEDS: METHOCARBAMOL 500 MG TAB PO SCH (22:13)
[2018-05-03] MEDS: D5-0.45% NACL WITH KCL 20MEQ/L 1,000 ML IV SCH (22:22)
[2018-05-04] MEDS: HYDROmorphone 1 MG/ML 1 ML SYRINGE IVP PRN ×2 (02:41→06:19)
[2018-05-04] MEDS: D5-0.45% NACL WITH KCL 20MEQ/L 1,000 ML IV SCH (03:14)
[2018-05-04] MEDS: ceFAZolin IN SWFI 2 GM/20 ML SYRINGE IVP SCH (06:19)
[2018-05-04] MEDS: METHOCARBAMOL 500 MG TAB PO SCH (08:02)
[2018-05-04 10:45] VITALS: BP 107/90; PULSE 71; RESP 19; TEMP 98.6
[2018-05-04] MEDS ORDERED: HYDROcodone/APAP 7.5-325MG 1 EACH TAB PO PRN (11:06)
[2018-05-04] MEDS ORDERED: ACETAMINOPHEN TAB 325 MG TAB PO PRN (11:06)
--- NOTE | 2018-05-04 13:22 | P.DS ---
<Kelsy Queen - Last Filed: 05/04/18 14:14> Providers Date of admission: 05/04/18 04:24 Attending physician: Margo Frye Primary care physician: Physician Nonstaff Hospital Course: 43-year-old female presented on elective basis to undergo panniculectomy . Patient is status post gastric bypass November 2016. Patient reports having severe panniculitis. Postop there were no events. The day of discharge pain medication effective for pain control. Abdominal binder in place with JOSEPH drains in place. Patient was felt to be appropriate to be discharged home Impression discharge diagnosis panniculectomy for history of medical refractory panniculitis Morbid obesity due to excess calories BMI reduced from 41 down to 23 Osteoarthritis bilateral hips, lower back, bilateral knees Obstructive sleep apnea now resolved Status post gastric bypass Chronic pain syndrome Gastroesophageal reflux disease resolved Panniculectomy, 2.7 pounds. Removed done on May 03 Status post abdominal ventral hernia done on May 03 The above impression and plan of care have been discussed and directed by signing physician. Kelsy Queen nurse practitioner acting as scribe for signing physician. Patient Condition at Discharge: Stable Plan - Discharge Summary New Discharge Prescriptions: New HYDROcodone/APAP 7.5-325MG [Tekoa 7.5-325] 1 each PO Q4HR PRN #18 tab PRN Reason: Pain Continue Temazepam [Restoril] 15 - 30 mg PO HS PRN PRN Reason: SLEEP Multivitamins, Thera [Multivitamin (formulary)] 1 tab PO DAILY Gabapentin 600 mg PO HS Firth-3 Fatty Acids [Firth-3] 1,000 mg PO DAILY Methocarbamol [Robaxin] 1,000 mg PO TID Discontinued Nystatin 100,000 Unit/gm Powd [Mycostatin Powder] 1 applic TOPICAL BID #60 powder Cyanocobalamin (Vitamin B-12) [Vitamin B12] 5,000 mcg NASAL WEEKLY ALPRAZolam [Xanax] 0.25 mg PO Q8HR #30 tab Discharge Medication List Temazepam [Restoril] 15 - 30 mg PO HS PRN 11/24/16 [History] Multivitamins, Thera [Multivitamin (formulary)] 1 tab PO DAILY 03/25/17 [History ] Gabapentin 600 mg PO HS 04/09/17 [History] Firth-3 Fatty Acids [Firth-3] 1,000 mg PO DAILY 11/08/17 [History] Methocarbamol [Robaxin] 1,000 mg PO TID 04/22/18 [History] HYDROcodone/APAP 7.5-325MG [Tekoa 7.5-325] 1 each PO Q4HR PRN #18 tab 05/04/18 [ Rx] Follow up Appointment(s)/Referral(s): [facility] [[facility]-STAFF] - 05/07/18 10:00 am Patient Instructions/Handouts: Panniculectomy (DC) Activity/Diet/Wound Care/Special Instructions: NO lifting over 4 pounds in 4 weeks. No shower. No bathtub soaks. Record JOSEPH drain output daily and strip drains to prevent clogging. Sleep with head of bed up at 30 to 45 degrees. Walk with hips flexed to prevent tear of your incision. Dressings to be removed by your doctor in the office. EAT 75 G PROTEIN DAILY FOR OPTIMAL RECOVERY. CALL FOR ANY PROBLEMS OR CONCERNS. Discharge Disposition: HOME SELF-CARE <Margo Frye - Last Filed: 05/05/18 10:21> Providers Expected date of discharge: 05/04/18 - Discharge Diagnosis(es) (1) Panniculitis Status: Acute (2) S/P panniculectomy Status: Acute Hospital Course: POSTOPERATIVE DIAGNOSES: 1. Morbid obesity due to excess calories. 2. Body mass index reduced from 41.7 down to 23.8 3. Status post gastric bypass. 4. Obstructive sleep apnea, now resolved. 5. Osteoarthritis of bilateral hips, improved. 6. Osteoarthritis of lower back. 7. Osteoarthritis of bilateral knees. 8. Hypertensive heart disease, improved. 9. Gastroesophageal reflux disease, resolved. 10. Hypertriglyceridemia, improved. 11. Hypercholesterolemia, improved. 12. Macromastia. 13. Chronic pain syndrome. 14. Panniculitis Procedures: OPERATION: 1. Panniculectomy, 2.7 pounds. 2. Primary repair of ventral hernia 9 x 23 cm without mesh. ANESTHESIA: General with local ESTIMATED BLOOD LOSS: 200 mL SPECIMENS REMOVED: Pannus 2.7 pounds. COMPLICATIONS: None. CONDITION: Stable. DRAINS: Two #19 Alexi drains below abdominal flap extending through the pubis. OPERATIVE FINDINGS: 1. Pannus weighing 2.7 pounds, excised. 2. Abdominal ventral hernia of 9 x 2cm along the midline repaired primarily using fascial imbrication. Plan - Discharge Summary Discharge Rx Participant: Yes
== END 2018-05-04 13:54 | disposition home or self-care (01) ==
LOC: OR 12:45 → 6PED 16:39 → OR 05-04 04:28
PROVIDERS: ADMIT Surgery Plastic and Reconstructive Surgery; ATTEND Surgery Plastic and Reconstructive Surgery
DX: M79.3 Panniculitis, unspecified (principal); E66.01 Morbid (severe) obesity due to excess calories; Z98.84 Bariatric surgery status; Z68.23 Body mass index [BMI] 23.0-23.9, adult; M16.0 Bilateral primary osteoarthritis of hip; M47.9 Spondylosis, unspecified; M17.0 Bilateral primary osteoarthritis of knee; I11.9 Hypertensive heart disease without heart failure; K21.9 Gastro-esophageal reflux disease without esophagitis; E78.1 Pure hyperglyceridemia; E78.00 Pure hypercholesterolemia, unspecified; N62 Hypertrophy of breast; G89.4 Chronic pain syndrome; K43.9 Ventral hernia without obstruction or gangrene; G43.909 Migraine, unspecified, not intractable, without status migrainosus; M54.5 Low back pain; M54.2 Cervicalgia; M25.511 Pain in right shoulder; E78.5 Hyperlipidemia, unspecified; F32.9 Major depressive disorder, single episode, unspecified; F41.0 Panic disorder [episodic paroxysmal anxiety]; R32 Unspecified urinary incontinence; Z79.899 Other long term (current) drug therapy; Z88.8 Allergy status to other drugs, medicaments and biological substances; Z87.891 Personal history of nicotine dependence; Z87.11 Personal history of peptic ulcer disease; Z83.3 Family history of diabetes mellitus; Z80.49 Family history of malignant neoplasm of other genital organs; Z82.0 Family history of epilepsy and other diseases of the nervous system
CPT/HCPCS: 49560; 15830; 81025; G0378; J2250; J1644; J1100; J2175; J2405; J2001; J3010; J1170 ×2; J0330; J2704; J0690 ×2

== ENCOUNTER → 2018-05-07 | Outpatient (CLI) | payer BC ==
[2018-05-07 10:23] VITALS: BP 112/76; PULSE 80; TEMP 98.2; BMI 24.6
--- NOTE | 2018-05-07 10:56 | P.PN ---
Progress Note - Text Progress Note Date: 05/07/18 To Whom It May Concern: Alice Palomino is under my general surgical care. She will need 4 weeks of no lifting and may not return to work until 06/07/2018. Feel free to contact us if questions. Sincerely Dr. Margo Frye
--- NOTE | 2018-05-07 11:16 | P.PN ---
Subjective Progress Note Date: 05/07/18 DATE OF SERVICE: 05/07/2018 CHIEF COMPLAINT: Status post panniculectomy HISTORY OF PRESENT ILLNESS: Alice Martinez is a 42-year-old female who is status post gastric bypass on 12/19/2016. She status post panniculectomy 05/03/2018. She is postoperative day 4. Her pain is controlled. She is ambulating. No reports of fever or cellulitis. Her initial weight was 250 pounds. Her ideal body weight for her 5 foot 5 frame is 149 pounds. Today she comes in weighing 148 pounds from 146 pounds, 3 months ago. She has gained 2 pounds in 3 months. Lifetime weight loss is 102 pounds. Percent excess weight loss is 101 %. Body mass index is reduced from 41.7 down to 24.6. PHYSICAL EXAM: VITAL SIGNS: 5 foot 5, 148 pounds. Body mass index of 24.6 Vital Signs Temp 98.2 F 05/07/18 10:20 Pulse 80 05/07/18 10:20 Resp BP 112/76 05/07/18 10:20 Pulse Ox GENERAL: Well-developed, pleasant female in no acute distress. ABDOMEN: Dressings discontinued. No signs of infection. JOSEPH serosanguineous. HEENT: No sclerae icterus. Extraocular movements grossly intact. Moist buccal mucosa. NECK: Supple without lymphadenopathy. CHEST: Nonlabored respirations. Equal bilateral excursions. CARDIOVASCULAR: Regular rate and rhythm. 2+ bilateral pitting edema. MUSCULOSKELETAL: No clubbing, cyanosis, or edema. PSYCH: Appropriate affect. Alert and oriented to person, place, and time. NEURO: No focal or lateralizing signs. Cranial nerves II through XII grossly within normal limits. SKIN: Well perfused. Good skin turgor. ASSESSMENT: 1. Morbid obesity due to excess calories. 2. Body mass index reduced from 41.7 down to 24.6 3. Status post gastric bypass. 4. Obstructive sleep apnea, now resolved. 5. Osteoarthritis of bilateral hips, improved. 6. Osteoarthritis of lower back. 7. Osteoarthritis of bilateral knees. 8. Hypertensive heart disease, improved. 9. Gastroesophageal reflux disease, resolved. 10. Hypertriglyceridemia, improved. 11. Hypercholesterolemia, improved. 12. Macromastia. 13. Chronic pain syndrome. 14. Status post panniculectomy PLAN: 1. Dressings were changed using Optifoam 2. Abdominal binder repositioned. 3. Pain medications were prescribed. 4. Time off from work at least 4-6 weeks. 5. Follow-up in one week. Objective - Vital Signs Vital signs: Vital Signs Temp 98.2 F 05/07/18 10:20 Pulse 80 05/07/18 10:20 Resp BP 112/76 05/07/18 10:20 Pulse Ox Intake & Output 05/06/18 05/07/18 05/07/18 18:59 06:59 18:59 Weight 67.132 kg
== END | disposition home or self-care (01) ==
LOC: BARWHC3 09:23
PROVIDERS: ATTEND Surgery Plastic and Reconstructive Surgery
DX: Z48.817 Encounter for surgical aftercare following surgery on the skin and subcutaneous tissue (principal); R63.4 Abnormal weight loss; E66.01 Morbid (severe) obesity due to excess calories; G89.4 Chronic pain syndrome; M16.0 Bilateral primary osteoarthritis of hip; M47.9 Spondylosis, unspecified; M17.0 Bilateral primary osteoarthritis of knee; I11.9 Hypertensive heart disease without heart failure; E78.1 Pure hyperglyceridemia; E78.00 Pure hypercholesterolemia, unspecified; N62 Hypertrophy of breast; Z68.24 Body mass index [BMI] 24.0-24.9, adult; Z98.890 Other specified postprocedural states; Z98.84 Bariatric surgery status
CPT/HCPCS: 99212

== ENCOUNTER → 2018-05-12 | Outpatient (CLI) | payer BC ==
[2018-05-12 13:40] VITALS: BP 117/78; PULSE 86; TEMP 98.4; BMI 24.7
--- NOTE | 2018-05-12 14:12 | P.PN ---
Subjective Progress Note Date: 05/12/18 DATE OF SERVICE: 05/12/2018 CHIEF COMPLAINT: Status post panniculectomy HISTORY OF PRESENT ILLNESS: Alice Martinez is a 42-year-old female who is status post gastric bypass on 12/19/2016. She status post panniculectomy 05/03/2018. She is 1 week out. She is doing very well. JOSEPH drains are less than 5 mL daily. She has no signs of infection. Her initial weight was 250 pounds. Her ideal body weight for her 5 foot 5 frame is 149 pounds. Today she comes in weighing 149 pounds from 148 pounds, 1 week ago. She has gained 1 pound in 1 week. Lifetime weight loss is 101 pounds. Percent excess weight loss is 100 %. Body mass index is reduced from 41.7 down to 24.8 PHYSICAL EXAM: VITAL SIGNS: 5 foot 5, 149 pounds. Body mass index of 24.8 Vital Signs Temp 98.4 F 05/12/18 13:33 Pulse 86 05/12/18 13:33 Resp BP 117/78 05/12/18 13:33 Pulse Ox GENERAL: Well-developed, pleasant female in no acute distress. ABDOMEN: No infection. JPs discontinued. Optifoam dressing placed. HEENT: No sclerae icterus. Extraocular movements grossly intact. Moist buccal mucosa. NECK: Supple without lymphadenopathy. CHEST: Nonlabored respirations. Equal bilateral excursions. CARDIOVASCULAR: Regular rate and rhythm. MUSCULOSKELETAL: No clubbing, cyanosis, or edema. PSYCH: Appropriate affect. Alert and oriented to person, place, and time. NEURO: No focal or lateralizing signs. Cranial nerves II through XII grossly within normal limits. SKIN: Well perfused. Good skin turgor. ASSESSMENT: 1. Morbid obesity due to excess calories. 2. Body mass index reduced from 41.7 down to 24.8 3. Status post gastric bypass. 4. Status post panniculectomy PLAN: 1. JPs were removed. 2. Follow up in 2 weeks. 3. Wound care instructions were reviewed. Objective - Vital Signs Vital signs: Vital Signs Temp 98.4 F 05/12/18 13:33 Pulse 86 05/12/18 13:33 Resp BP 117/78 05/12/18 13:33 Pulse Ox Intake & Output 05/11/18 05/12/18 05/12/18 18:59 06:59 18:59 Weight 67.585 kg
== END | disposition home or self-care (01) ==
LOC: BARWHC3 12:55
PROVIDERS: ATTEND Surgery Plastic and Reconstructive Surgery
DX: Z48.817 Encounter for surgical aftercare following surgery on the skin and subcutaneous tissue (principal); E66.01 Morbid (severe) obesity due to excess calories; Z68.24 Body mass index [BMI] 24.0-24.9, adult; Z98.84 Bariatric surgery status; Z98.890 Other specified postprocedural states
CPT/HCPCS: 99212

== ENCOUNTER → 2018-05-27 | Outpatient (CLI) | payer BC ==
[2018-05-27 13:24] VITALS: BP 123/83; PULSE 83; TEMP 98.2; BMI 24.7
--- NOTE | 2018-05-27 17:00 | P.PN ---
Subjective Progress Note Date: 05/27/18 HPI: Patient reports increased swelling just above the pubis following discontinuance of JOSEPH drains in last 1-2 weeks. She continues to wear her abdominal binder following her panniculectomy. ABDOMEN: Mild fullness along the pubis. No erythema or cellulitis. PLAN: 1. Recommend ultrasound at the subcutaneous tissue above the pubis to evaluate for abdominal wall seroma which may be aspirated. 2. Patient advised to wear abdominal binder at all times especially for at least 2 months following surgery. Objective - Vital Signs Vital signs: Vital Signs Temp 98.2 F 05/27/18 13:18 Pulse 83 05/27/18 13:18 Resp BP 123/83 05/27/18 13:18 Pulse Ox Intake & Output 05/26/18 05/27/18 05/27/18 18:59 06:59 18:59 Weight 67.404 kg
== END | disposition home or self-care (01) ==
LOC: BARWHC3 13:05
PROVIDERS: ATTEND Surgery Plastic and Reconstructive Surgery
DX: R19.00 Intra-abdominal and pelvic swelling, mass and lump, unspecified site (principal); Z98.890 Other specified postprocedural states
CPT/HCPCS: 99212

== ENCOUNTER 2018-06-21 13:21 | Day surgery (SDC) | payer BC ==
[2018-06-21 13:40] VITALS: BP 115/67; PULSE 68; RESP 16; TEMP 98
--- NOTE | 2018-06-21 14:21 | US ---
Discontinued seroma aspiration Ultrasound performed at the site of patient's symptomatology. No discrete fluid collection is evident . IMPRESSION: Aborted seroma drainage.
== END 2018-06-21 13:55 | disposition home or self-care (01) ==
LOC: RADPROMAIN 13:21
PROVIDERS: ATTEND Surgery Plastic and Reconstructive Surgery
DX: S30.1XXA Contusion of abdominal wall, initial encounter (principal); Z53.8 Procedure and treatment not carried out for other reasons
CPT/HCPCS: 76536

== ENCOUNTER → 2018-06-21 | Outpatient (CLI) | payer BC | END | disposition home or self-care (01) | LOC: RADUSMAIN 10:49 | PROVIDERS: ATTEND Surgery Plastic and Reconstructive Surgery | DX: Z53.9 Procedure and treatment not carried out, unspecified reason (principal) ==

== ENCOUNTER → 2022-12-03 | Outpatient (CLI) | payer BC ==
--- NOTE | 2022-12-05 10:46 | MR ---
EXAMINATION TYPE: MR knee RT wo con DATE OF EXAM: 12/03/2022 COMPARISON: None HISTORY: Rt knee pain TECHNIQUE: Multiplanar, multisequence imaging of the right knee is performed without IV contrast. FINDINGS: Exam is severely limited by motion artifact. Grossly the anterior cruciate and posterior cruciate lig aments are intact. The medial collateral ligament is intact. There does appear to be ill definition a long the proximal attachment of the lateral collateral ligament correlate for lateral collateral liga ment injury and tear. Linear signal in the posterior horn of the medial meniscus suspicious for tear given limitations of e xam. Lateral meniscus has a normal signal pattern Within the suprapatellar fat pad there is a area of abnormal signal. The patellar and quadriceps tend ons are intact. Tricompartment joint space is preserved. Popliteal fossa demonstrates no evidence of cystic mass. The articular cartilage appears preserved within the knee joint. There is a single focus of increased signal involving the medial patellar facet compatible with chondromalacia. IMPRESSION: Limited exam due to motion. 1. There is a 1.5 cm area of abnormal signal in the suprapatellar fat pad compatible with suprapatell ar fat pad impingement syndrome 2. The exam is limited in interpretation due to significant motion artifacts. Given the limitation of this exam exam findings are suspicious for linear tear posterior horn medial meniscus. 3. There is poor definition of the femoral attachment of the lateral collateral ligament correlate fo r lateral collateral ligament injury or tear.
== END | disposition home or self-care (01) ==
LOC: RADMRIMAIN 06:11
PROVIDERS: ATTEND Family Medicine
DX: M79.4 Hypertrophy of (infrapatellar) fat pad (principal)